=== PATIENT | female | born 1955 | race Caucasian/White ===

== ENCOUNTER 2018-08-24 06:35 | Emergency (ER) | payer BC ==
--- OUTSIDE RECORDS SUMMARY | 2018-08-24 06:48 | XMS REPORT | Continuity of Care Document ---
:1955 External Reference #:[id number] Author Name Marisa Alcazar Care Team Providers Name Role Phone Baltazar Bran MD Primary Care Physician Unavailable Payers Type Date Identification Numbers Payment Provider Subscriber Policy Number: [id number] BS Liana Hall PayID: [id number] [address] [address] [place] [address] Effective: 2010 Policy Number: [id number] BS Of ADAN Hall Expires: 2015 PayID: [id number] [address] [address] [place] [address] Advance Directives Description No Information Available Problems Date Description Provider Status Onset: 07/14/2015 Sciatica Christian Escalante M.D. 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 morning and 3 at at night Carbidopa-Levod 11/07/ Active Tablets 25-100mg 270ta 1 tab G20 [facility] 2017 bs rose Wood M.D. times a day Vasotec 00/00/ Active Tablets 20mg 1 by mouth Unknown 0000 every day Triamterene/Hyd 00/ Active Capsules 37.5-25mg 1 by mouth Unknown rochlorothiazid 0000 every day e Levothyroxine / Active Tablets 75mcg 1 by mouth Unknown Sodium 0000 every day Caltrate 600+D / Active Chewtabs 600-400mg 1 by mouth Unknown 0000 -Unit every day Multivitamins / Active Capsules 1 by mouth Unknown 0000 every day Ezetimibe / Active Tablets 10mg take one Unknown 0000 tablet daily, generic if available Zetia / Hx Tablets 10mg 1 by mouth Unknown 0000 - every day 2016 Ibuprofen / Hx Capsules 200mg as needed Unknown 0000 - 2017 Fish Oil / Hx Capsules 1200mg 1 by mouth Unknown 0000 - DR three 2017 daily Medications Administered in Office Medication Date Status Form Strength Qnty SIG Indications Ordering Provider Depomedrol Administered Injection Olivia 40MG 018 EH Chavez Immunizations Description No Information Available Vital Signs Date Vital Result Comment 08/07/2018 10:37am Height 59 inches 4'11" Weight 150.00 lb Respiratory Rate 16 /min Pain Level 10 BMI (Body Mass Index) 30.3 kg/m2 06/21/2018 10:57am Heart Rate 80 /min BP Systolic 128 mmHg BP Diastolic 86 mmHg Respiratory Rate 16 /min Pain Level 7 04/24/2018 9:07am Height 59.5 inches 4'11.50" Weight 158.00 lb Heart Rate 72 /min BP Systolic 138 mmHg BP Diastolic 90 mmHg Respiratory Rate 16 /min BMI (Body Mass Index) 31.4 kg/m2 10/25/2017 3:21pm Height 59.5 inches 4'11.50" Weight 172.38 lb Heart Rate 66 /min BP Systolic 124 mmHg BP Diastolic 76 mmHg BMI (Body Mass Index) 34.2 kg/m2 08/01/2017 10:06am Height 59.5 inches 4'11.50" Weight 170.00 lb Heart Rate 72 /min BP Systolic Sitting 120 mmHg BP Diastolic Sitting 84 mmHg BMI (Body Mass Index) 33.8 kg/m2 11/07/2016 2:06pm Height 59.5 inches 4'11.50" Weight 162.00 lb Heart Rate 71 /min BP Systolic Sitting 138 mmHg BP Diastolic Sitting 74 mmHg Respiratory Rate 16 /min BMI (Body Mass Index) 32.2 kg/m2 10/13/2015 12:56pm Height 59.5 inches 4'11.50" Weight 146.00 lb Heart Rate 72 /min BP Systolic Sitting 142 mmHg BP Diastolic Sitting 76 mmHg Respiratory Rate 16 /min BMI (Body Mass Index) 29.0 kg/m2 07/14/2015 9:43am Height 59.5 inches 4'11.50" Weight 151.00 lb Heart Rate 90 /min BP Systolic Sitting 140 mmHg BP Diastolic Sitting 100 mmHg Pain Level 3 back/r leg BMI (Body Mass Index) 30.0 kg/m2 Results Description No Information Available Procedures Date Code Description Status 04/24/2018 42696 Inject/Drain Joint/Bursa Major W/O US Completed 07/05/2012 88531 Stress Test Completed Encounters Type Date Location Provider Dx Diagnosis Office Visit 06/21/2018 Orthopedic Sloan Donald M17.11 Unilateral primary 11:00a Services Of [facility] Hillman MD osteoarthritis, right knee M25.461 Effusion, right knee M25.561 Pain in right knee S83.241D Oth tear of medial meniscus, current injury, r knee, subs Office Visit 04/24/2018 1:00p Bayron Donald M25.461 Effusion, right Services [facility] Rafy knee Jorge M17.11 Unilateral primary osteoarthritis, right knee M25.561 Pain in right knee Office 04/24/2018 [facility] G20 Parkinson's Visit 9:15a Services Of Walter Wood M.D. 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 side R25.1 Tremor, unspecified Office Visit 07/05/2012 8:00a [facility] Terri Orozco, 786.50 Pain Chest Of [facility] Cormier Unspec 401.9 Hypertension Unspec Plan of Treatment Future Appointment(s):09/10/2018 8:30 am - Sloan Hillman MD at [facility]/15/2018 8:00 am - Jas Wood M.D. at [facility]08/07/2018 - Sloan Hillman, MDM17.11 Unilateral primary osteoarthritis, right kneeFollow up:Follow up: for H&P within 30 days of planned bedlejvQ88.561 Pain in right knee
[2018-08-24] MEDS ORDERED: NS 0.9% 1000 ML* 1,000 ML IV ONE (07:18)
[2018-08-24] MEDS ORDERED: DiMENhydriNATE IV* 50 MG/ML VIAL IV PUSH ONE (07:18)
--- NOTE | 2018-08-24 07:29 | ED ---
Dizziness - HPI Summary HPI Summary: Pt is a 62 y/o female who presents to the ED c/o dizziness. She states yesterday morning she got off her inversion table for her back and became mildly dizzy, which is not unusual. Pt then had an appointment with her PCP for her knee replacement surgery next month, and her physical exam was normal. She then became nauseated and had one episode of emesis last night. Pt describes the sensation as her head spinning, and bending down or turning her head makes the dizziness worse. She currently c/o a mild headache. She denies any cough, fever, congestion, numbness, weakness, aphasia, or head injury. PMHx HTN. - History Of Current Complaint Chief Complaint: EDDizziness Stated Complaint: GENERAL Time Seen by Provider: 08/24/18 07:16 Hx Obtained From: Patient Onset/Duration: Still Present Timing: Days - Yesterday Character: Head Spinning, Dizzy Aggravating Factor(s): Position Change - bending down, Change In Head Position Alleviating Factor(s): Nothing Associated Signs And Symptoms: Positive: Nausea, Vomiting, Other: - headache. Negative: Fever, Slurred Speech - Allergies/Home Medications Allergies/Adverse Reactions: Allergies Allergy/AdvReac Type Severity Reaction Status Date / Time No Known Allergies Allergy Verified 06/11/18 11:38 PMH/Surg Hx/FS Hx/Imm Hx Endocrine/Hematology History: Reports: Hx Thyroid Disease Denies: Hx Diabetes Cardiovascular History: Reports: Hx Hypercholesterolemia, Hx Hypertension - CONTROLLED Denies: Hx Pacemaker/ICD Respiratory History: Denies: Hx Asthma GI History: Reports: Other GI Disorders - diarrhea/constipation History: Reports: Other Problems/Disorders - incontinence Denies: Hx Renal Disease Musculoskeletal History: Reports: Hx Arthritis, Hx Back Problems, Other Musculoskeletal History - chronic pain, tremors Sensory History: Reports: Hx Contacts or Glasses, Other Sensory Impairments - dentures Denies: Hx Hearing Aid Opthamlomology History: Reports: Hx Contacts or Glasses, Other Sensory Impairments - dentures Neurological History: Reports: Hx Headaches, Other Neuro Impairments/Disorders - parkinsonian tremors Psychiatric History: Denies: Hx Panic Disorder - Cancer History Hx Chemotherapy: No Hx Radiation Therapy: No - Surgical History Surgery Procedure, Year, and Place: tubal, hysterectomy 1998 Infectious Disease History: No Infectious Disease History: Denies: Traveled Outside the [place] in Last 30 Days - Family History Known Family History: Positive: Cardiac Disease - Social History Alcohol Use: None Hx Substance Use: No Substance Use Type: Reports: None Hx Tobacco Use: No Smoking Status (MU): Never Smoked Tobacco Review of Systems Negative: Fever Negative: Nasal Discharge Negative: Cough Positive: Vomiting, Nausea Neurological: Other - dizziness, NEGATIVE: aphasia Positive: Headache. Negative: Weakness, Numbness All Other Systems Reviewed And Are Negative: Yes Physical Exam - Summary Physical Exam Summary: Appearance: Well appearing, no pain distress Skin: warm, dry, reflects adequate perfusion Head/face: normal Eyes: EOMI, YUNIER, no nystagmus ENT: mucous membranes moist, small serous effusions in both ears, no sinus tenderness, [place]-Hallpike to the right produces symptoms Neck: supple, non-tender Respiratory: CTA, breath sounds present Cardiovascular: RRR, pulses symmetrical Abdomen: non-tender, soft Bowel Sounds: present Musculoskeletal: normal, strength/ROM intact Neuro: normal, sensory motor intact, A&Ox3 Triage Information Reviewed: Yes Vital Signs On Initial Exam: Initial Vitals Temp Pulse Resp BP Pulse Ox 98.3 F 80 20 163/88 99 08/24/18 06:37 08/24/18 06:37 08/24/18 06:37 08/24/18 06:37 08/24/18 06:37 Vital Signs Reviewed: Yes Diagnostics - Vital Signs Vital Signs Temp Pulse Resp BP Pulse Ox 08/24/18 06:37 98.3 F 80 20 163/88 99 - Laboratory Result Diagrams: 08/24/18 07:46 08/24/18 07:46 Lab Statement: Any lab studies that have been ordered have been reviewed, and results considered in the medical decision making process. - EKG 7:28 Cardiac Rate: NL - 66 bpm EKG Rhythm: Sinus Rhythm ST Segment: Non-Specific Summary of EKG Findings: Nl axis, nl intervals Re-Evaluation - Re-Evaluation First Eval Re-Evaluation Time: 08:10 Change: Improved Comment: Pt feels better after the medications. Dizzy Course/Dx - Course Course Of Treatment: Nurse's note reviewed. Patient with abrupt vertigo after coming off the inversion table this morning. Vertigo rises when bending over or turning head. Small serous effusions bilaterally. No URI symptoms. Treated here with IV fluids, IV Dramamine with relief. Able to walk without vertigo. Discharged in good condition. - Diagnoses Differential Diagnosis/HQI/PQRI: Benign Paroxysmal Positional Vertigo, Hypovolemia, Labyrinthitis, Metabolic Abnormality, Other - Vestibular neuronitis , posterior CVA Provider Diagnoses: Peripheral vertigo, Labyrinthitis, Elevated blood pressure reading Discharge - Sign-Out/Discharge Documenting (check all that apply): Patient Departure - Discharge - Discharge Plan Condition: Improved Disposition: HOME Prescriptions: Meclizine HCl [Motion Sickness Relief] 25 - 50 mg PO TID PRN #30 tablet PRN Reason: Dizziness Patient Education Materials: Labyrinthitis (ED), Vertigo (ED) Referrals: Baltazar Bran MD [Primary Care Provider] - Additional Instructions: Do Not drive. Call today for prompt follow-up with your doctor. Drink plenty of fluids. Return with headache, numbness/weakness, difficulty with speech or balance, worse or other concerns. Eply maneuvers as shown. - Billing Disposition and Condition Condition: IMPROVED Disposition: Home - Attestation Statements Document Initiated by Scribe: Yes Documenting Scribe: Vanita Diop Provider For Whom Scribe is Documenting (Include Credential): Femi Hector MD Scribe Attestation: Vanita Camp, scribed for Femi Hector MD on 08/24/18 at 1000. Scribe Documentation Reviewed: Yes Provider Attestation: The documentation as recorded by the Vanita deleon accurately reflects the service I personally performed and the decisions made by me, Femi Hector MD Status of Scribe Document: Viewed
[2018-08-24 07:52] LABS: ABS Basophils 0 10^3/ul (0-0.2); ABS Eosinophils 0 10^3/ul (0-0.6); ABS Lymphocytes 1.4 10^3/ul (1.0-4.8); ABS Monocytes 0.4 10^3/ul (0-0.8); ABS Neutrophils 4.9 10^3/ul (1.5-7.7); ABS Nucleated RBC 0 10^3/ul; Eosinophil % 0.3 %; Hematocrit 39 % (35-47); Hemoglobin 13.2 g/dl (12.0-16.0); Lymphocyte % 21.1 %; Mean Corpuscular HGB Conc 34 g/dl (31-36); Mean Corpuscular Hemoglobin 29 pg (27-31); Mean Corpuscular Volume 87 fL (80-97); Mean Platelet Volume 9.1 fL (7.4-10.4); Nucleated Red Blood Cells % 0.1; Platelet Count 257 10^3/ul (150-450); Red Blood Count 4.51 10^6/ul (4.00-5.40); Red Cell Distribution Width 14 % (10.5-15); White Blood Count 6.8 10^3/ul (3.5-10.8)
[2018-08-24 08:08] LABS: EGFR Non-African American 63.1 (>60)
[2018-08-24 08:36] VITALS: BP 172/80
== END 2018-08-24 08:33 | disposition home or self-care (01) ==
LOC: ED 06:35
DX: H81.399 Other peripheral vertigo, unspecified ear (principal); H83.09 Labyrinthitis, unspecified ear; R03.0 Elevated blood-pressure reading, without diagnosis of hypertension; R11.2 Nausea with vomiting, unspecified
CPT/HCPCS: 36415; 80048; 85025; 93005; 96374; 99282; J1240

== ENCOUNTER 2018-09-21 05:29 | Inpatient (IN) | payer BC ==
[~2018-09-21 05:29] MED LIST: Buffered Lidocaine 0.9% SYRIN* 5 ML/SYR SYRINGE INTRADERM ONE; Tranexamic Acid 1,000 MG in NS 0.9% 50 ML* (outpatient use) IV SCH
--- OUTSIDE RECORDS SUMMARY | 2018-09-21 05:32 | XMS REPORT | Continuity of Care Document ---
:1955 External Reference #:[id number] Author Name Erin Flaherty Care Team Providers Name Role Phone Baltazar Bran MD Primary Care Physician Unavailable Payers Type Date Identification Numbers Payment Provider Subscriber Policy Number: [id number] BS Liana Hall PayID: [id number] [address] [address] [place] [address] Effective: 2010 Policy Number: [id number] BS Of DAAN Hall Expires: 2015 PayID: [id number] [address] [address] [place] [address] Advance Directives Description No Information Available Problems [...] Use Denies Drug Use Smoking Status Reviewed: 09/10/18 Patient has never smoked Allergies, Adverse Reactions, Alerts Description No Known Drug Allergies Medications Medication Date Status Form Strength Qnty SIG Indications Ordering Provider Gabapentin 08/01/ Active Capsules 300mg 540ca 3 in in M54.5 2016 ps yudith Wood M.D. morning and 3 at at night Carbidopa-Levod 11/07/ Active Tablets 25-100mg 270ta 1 tab G20 [facility] 2016 bs rose Wood M.D. times a day Vasotec 00/00/ Active Tablets 20mg 1 by mouth Unknown 0000 every day Triamterene/Hyd 0000/ Active Capsules 37.5-25mg 1 by mouth Unknown [...] 1 by mouth Unknown 0000 - DR rose 2017 daily Medications Administered in Office Medication Date Status Form Strength Qnty SIG Indications Ordering Provider Depomedrol Administered Injection Olivia 40MG 018 EH Chavez Immunizations Description No Information Available Vital Signs Date Vital Result Comment 09/10/2018 10:38am Height 59 inches 4'11" Weight 150.00 lb Heart Rate 64 /min BP Systolic 120 mmHg BP Diastolic 84 mmHg BMI (Body Mass Index) 30.3 kg/m2 08/07/2018 10:37am Height 59 inches 4'11" Weight [...] Available Procedures Date Code Description Status 04/24/2018 68582 Inject/Drain Joint/Bursa Major W/O US Completed 07/05/2012 65276 Stress Test Completed Encounters Type Date Location Provider Dx Diagnosis Office Visit 08/07/2018 [facility] Donald M17.11 Unilateral primary 10:30a Services Of Jorge Hillman MD osteoarthritis, right knee M25.561 Pain in right knee Office Visit 06/21/2018 [facility] Donald M17.11 Unilateral primary 11:00a Services Of MD Rafy osteoarthritis, C.M.A. right knee M25.461 Effusion, right knee M25.561 Pain in right knee S83.241D Oth tear of medial meniscus, current injury, r knee, subs Office Visit 04/24/2018 1:00p [facility] Sloan Donald M25.461 Effusion, right Services [facility] MD Rafy knee C.M.A. M17.11 Unilateral primary osteoarthritis, right knee M25.561 Pain in right knee Office [facility] 9:15a Services Of Walter Wood M.D. 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 side R25.1 Tremor, unspecified Office Visit 07/05/2012 8:00a [facility] Terri Orozco, 786.50 [facility] [place] Unspec 401.9 Hypertension Unspec Plan of Treatment Future Appointment(s):10/02/2018 1:30 pm - Sloan Hillman MD at [facility]09/21/2018 7:30 am - Hamilton Devi PA-C at [facility]09/21/2018 7:30 am - Sloan Hillman MD at [facility]11/15/2018 8:00 am - Jas Wood M.D. at [facility]09/10/2018 - Sloan Hillman, MDM17.11 Unilateral primary osteoarthritis, right kneeFollow up:Follow up: to ORM25.561 Pain in right kneeM25.461 Effusion, right kneeS83.241D Other tear of medial meniscus, current injury, right knee, s
--- OUTSIDE RECORDS SUMMARY | 2018-09-21 05:33 | XMS REPORT ---
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 Active Onset: 10/04/2005 Hyperlipidemia Baltazar Bran M.D. Active Onset: 10/04/2005 Goiter Baltazar Bran M.D. Active Onset: 12/18/2012 Gastroesophageal reflux disease Baltazar Bran M.D. Active Onset: 08/26/2014 Hypothyroidism Baltazar Bran M.D. Active Onset: 08/11/2015 Low back pain Baltazar Bran M.D. Active Onset: 02/14/2017 Parkinson's disease Baltazar Bran M.D. Active Onset: 02/20/2018 Knee pain Baltazar Bran M.D. Active Onset: 08/23/2018 Other hyperlipidemia Baltazar Bran M.D. Active Onset: 08/23/2018 Encounter for other preprocedural Baltazar Bran M.D. Active examination Onset: 10/18/2011 Benign essential hypertension Baltazar Bran M.D. Inactive Inactive: 08/17/2017 Onset: 09/25/2012 Backache Baltazar Bran M.D. Inactive Inactive: 08/17/2017 Onset: 08/11/2015 Simple goiter Baltazar Bran M.D. Inactive Inactive: 08/17/2017 Onset: 08/11/2015 Essential tremor Baltazar Bran M.D. Inactive Inactive: 08/17/2017 Onset: 12/22/2015 Mixed hyperlipidemia Baltazar Bran M.D. Inactive Inactive: 08/17/2017 Onset: 12/22/2015 Disorder of thyroid gland Baltazar Bran M.D. Inactive Inactive: 08/17/2017 Onset: 12/22/2015 Screening for malignant neoplasm of Baltazar Bran M.D. Inactive colon Inactive: 08/17/2017 Onset: 06/28/2016 smoke chaser waking Baltazar Bran M.D. Inactive Inactive: 08/17/2017 Onset: 02/14/2017 Hypercalcemia Baltazar Bran M.D. Inactive Inactive: 02/20/2018 Family History Date Family Member(s) Problem(s) Comments Onset: (age 45 Years) Father Coronary Artery Disease (CAD) smoker : (age 56 Years) Father due to [place] : (age 63 Years) Mother due to CT First Brother no coronary artery disease , diabetic First Sister no coronary artery disease Social History Type Date Description Comments Marital Status Patient is Cigarette Use Never Smoked Cigarettes Smoking Patient has never smoked Exercise Type/Frequency Current Exercises regularly Allergies, Adverse Reactions, Alerts Date Description Reaction Status Severity Comments 06/12/2011 NKDA active Medications Medication Date Status Form Strength Qnty SIG Indications Ordering Provider Enalapril 05/03/ Active Tablets 20mg 90tab Take One I10 Baltazar F. Maleate 2017 s Tablet By Shallisabell, Mouth Every M.D. Day Levothyroxine 04/01/ Active Tablets 75mcg 90tab 1 by mouth Baltazar F. Sodium 2018 s every day Genia Bran Gabapentin 11/15/ Active Capsules 300mg 180ca 3 caps Am Baltazar F. 2016 ps and 3 caps Shallisabell, PM M.D. Maxzide-25 03/30/ Active Tablets 37.5-25mg 90tab Take One Baltazar F. 2010 s Tablet By Shallish, Mouth Every M.DdE Day Zetia 05/08/ Active Tablets 10mg 90tab Take One Baltazar F. 2004 s Tablet By Shant, Mouth Every M.DEd Day Caltrate 600+D / Active Chewtabs 600-800mg one by mouth Baltazar F. Soft 0000 -Unit daily Genia Bran Multivitamin / Active Chewtabs 1 by mouth Baltazar F. Gummies Adults 0000 once a day Genia Bran Carbidopa-Levod / Active Tablets 25-100mg 1 tab tid Baltazar F. opa 0000 Genia Bran Cetirizine HCL / Active Baltazar F. 0000 Genia Bran Montelukast 02/20/ Hx Tablets 10mg 30tab 1 by mouth Baltazar F. Sodium 2017 - s daily prn Shant 08/23/ M.D. 2017 Zolpidem 06/28/ Hx Tablets ER 6.25mg 30tab take Baltazar F. Tartrate ER 2015 - 1tablets by Shant, 02/14/ mouth at M.D. 2016 bedtime as needed. Gabapentin 02/03/ Hx Capsules 100mg 90cap 1 by mouth Leon De Jesus 2015 - up to three Darlow, 06/28/ times per M.D. 2015 day Meloxicam 12/21/ Hx Tablets 7.5mg 60tab take one Baltazar F. 2015 - s tablet by Shant, 08/17/ mouth twice M.D. 2016 a day with food as needed Mometasone 12/21/ Hx Cream 0.1% 45gm apply three Baltazar F. Furoate 2016 - times a day Shant, 08/17/ as needed M.D. 2017 Oxycodone-Aceta 08/25/ Hx Tablets 7.5-325mg 60tab Take 1 Baltazar F. minophen 2014 - s tablet by Shant, 12/21/ mouth every M.D. 2016 4 hours as needed for pain Oxycodone-Aceta 07/02/ Hx Tablets 5-325mg 45tab 1 by mouth Baltazar F. minophen 2014 - s every 4 to 6 Shant 08/25/ hours as M.D. 2014 needed Tramadol HCL 06/23/ Hx Tablets 50mg 40tab 1 by mouth Baltazar F. 2014 - s every 6 Shallish, 12// hours as M.D. 2015 needed Prednisone 06/16/ Hx Tablets 5mg 9tabs 2 tabs x 3 Christina 2014 - days , then Sukhwinder, tabs x 3 Afnp-C 2014 days, Prednisone 06/02/ Hx Tablets 5mg 9tabs 2 tabs x 3 724.3 Christina 2014 - days , then Sukhwinder, tabs x 3 Afnp-C 2014 days, Levothyroxine 04/15/ Hx Tablets 50mcg 90tab Take One Baltazar F. Sodium 2014 - s Tablet By Shant, 04/01/ Mouth Every M.D. 2018 Day Levothyroxine 03/28/ Hx Tablets 25mcg 90tab Take One Baltazar F. Sodium 2013 - s Tablet By Shant, 04/15/ Mouth Every M.D. 2015 Day Losartan 02/04/ Hx Tablets 50mg 30tab 1 po qd Baltazar F. Potassium 2013 - s Shant, M.D. 2013 Medrol Dosepak 02/04/ Hx Tablets 4mg 1tabs as directed Baltazar F. 2013 - Shant, M.D. 2013 Vasotec 02/04/ Hx Tablets 20mg 90tab take one I10 Baltazar F. 2013 - s tablet by Shant, 05/03/ mouth every M.D. 2018 day Pantoprazole 12/18/ Hx Tablets DR 40mg 90tab 1 po qd Baltazar F. Sodium 2012 - s Shant, M.D. 2014 Nexium 10/17/ Hx Capsules 40mg 30cap 1 po qd Baltazar FEd 2012 - DR eric Bran, M.D. 2013 Omeprazole 07/04/ Hx Capsules 20mg 60cap 1 po qd Baltazar Portillo 2011 - DR eric Bran, M.D. 2013 Keflex 10/18/ Hx Capsules 500mg 20cap 1 po bid Owen Ledbetter 2010 - s [place]ura, 03/30/ M.D. 2010 Fish Oil 02/22/ Hx Oil 1 po tid Baltazar FEd 2009 - Shant, M.D. 2017 [facility] 12/03/ Hx Tablets 10mg 30tab 1 po qd Baltazar F. 2007 - s [facility], 02/22/ M.D. 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 2004 - s [facility], 05/08/ M.D. 2005 Lab 05/04/ Hx CBC, CMP, Jacob 2003 - Fasting Fuentes, 07/20/ Lipid [employer] 2004 Profile DX: HTN, High Cholesterol Zetia 07/22/ Hx 10mg 100un 1 qd Baltazar F. 2002 - [facility], 04/11/ M.D. 2004 Zocor 04/01/ Hx 10mg 60uni 1 PO qd Baltazar F. 2002 - [facility], M.D. 2002 Synthroid 03/19/ Hx 50mcg 100un 1 PO qd Baltazar F. 2001 - [facility], M.D. 2002 Penicillin 09/29/ Hx 250mg 20uni One tid Radu Estrada 1999 - Kayleigh, M.D. 1999 Vasotec 01/13/ Hx 20mg 90uni 1 po qd 401.9 Baltazar FEd 1997 - [facility], M.D. 2012 Lo Ovral 01/13/ Hx 0unit Take One Radu Estrada 1997 - Daily as Kayleigh, M.D. 1999 Day Cycle Dyazide 05/ Hx 37.5/25 30uni 1 po qd 401.9 Baltazar F. 1997 - [facility], M.D. 2010 Vasotec 05/ Hx Tablets 20mg 90tab 1 po qd 401.9 Baltazar FEd 1997 - [facility], M.D. 2014 Multi Vitamin /00/ Hx Tablets One By Mouth Unknown Daily 0000 - Daily 2014 Glucosamine // Hx Capsules 1 by mouth Unknown Sulfate 0000 - twice a day 2014 Medications Administered in Office Medication Date Status Form Strength Qnty SIG Indications Ordering Provider TB Intradermal Administered Injection Baltazar F. Test 014 Genia Bran TB Intradermal Administered Injection Baltazar F. Test 010 Genia Bran TB Intradermal Administered Injection Baltazar F. Test 008 Genia Bran TB Intradermal Administered Injection Baltazar F. Test 006 Genia Bran TB Intradermal Administered Injection Jacob Test 004 ANGIE Dill TB Intradermal Administered Injection Nurse, Test 002 Nurse TB Intradermal Administered Injection Adrianne Test 000 [place], Afnp-C Immunizations CPT Code Status Date Vaccine Reaction Lot # [id number] Given 08/23/2018 Influenza vac quadrivalent [id number] preservative free 3yrs and up [address] Given 08/17/2017 Influenza vac quadrivalent [id number] preservative free 3yrs and up [address] Given 06/28/2016 Influenza Vac, Quadrivalent, [id number] [address] Given 08/11/2015 Influenza Vac, Quadrivalent, [id number] [address] Given 08/26/2014 Influenza Vac, Quadrivalent, [id number] [address] Given 06/11/2013 DO Not Use Split Influenza Virus [id number] Vaccine 13404 Given 06/12/2012 Tdap Tetanus, W Pertussis no reaction noted [id number] 78625 Given 06/12/2012 DO Not Use Split Influenza Virus no reaction noted [id number] Vaccine 89595 Given 07/22/2003 DO Not Use Split Influenza Virus Vaccine 29555 Given 07/22/2003 DO Not Use Split Influenza Virus Vaccine 86249 Given 07/16/2002 DO Not Use Split Influenza Virus Vaccine Vital Signs Date Vital Result Comment 08/23/2018 BP Systolic 162 mmHg BP Diastolic 92 mmHg Heart Rate 68 /min Body Temperature 97.9 F Height 59.25 inches 4'11.25" Weight 153.00 lb BMI (Body Mass Index) 30.6 kg/m2 02/20/2018 BP Systolic 128 mmHg BP Diastolic 78 mmHg Heart Rate 76 /min Body Temperature 98.8 F Respiratory Rate 16 /min Height 59.25 inches 4'11.25" Weight 170.50 lb BMI (Body Mass Index) 34.1 kg/m2 08/17/2017 BP Systolic 122 mmHg BP Diastolic 84 mmHg Heart Rate 72 /min Body Temperature 97.7 F Height 59.25 inches 4'11.25" Weight 173.00 lb BMI (Body Mass Index) 34.6 kg/m2 02/14/2017 BP Systolic 130 mmHg BP Diastolic 70 mmHg Heart Rate 72 /min Body Temperature 98.8 F Respiratory Rate 16 /min Height 59.25 inches 4'11.25" Weight 168.00 lb BMI (Body Mass Index) 33.6 kg/m2 11/15/2016 BP Systolic 124 mmHg BP Diastolic 68 mmHg Heart Rate 68 /min Body Temperature 98.1 F Respiratory Rate 18 /min Height 59.25 inches 4'11.25" Weight 164.00 lb BMI (Body Mass Index) 32.8 kg/m2 06/28/2016 BP Systolic 130 mmHg BP Diastolic 80 mmHg Heart Rate 64 /min Body Temperature 98.9 F Respiratory Rate 18 /min Height 59.25 inches 4'11.25" Weight 160.38 lb BMI (Body Mass Index) 32.1 kg/m2 12/22/2015 BP Systolic 155 mmHg BP Diastolic 80 mmHg Heart Rate 74 /min Body Temperature 98.8 F Respiratory Rate 16 /min Height 59.25 inches 4'11.25" Weight 158.00 lb BMI (Body Mass Index) 31.6 kg/m2 08/11/2015 BP Systolic 143 mmHg BP Diastolic 96 mmHg Heart Rate 72 /min Body Temperature 98.4 F Respiratory Rate 16 /min Height 59.25 inches 4'11.25" Weight 155.50 lb BMI (Body Mass Index) 31.1 kg/m2 06/02/2015 BP Systolic 144 mmHg BP Diastolic 78 mmHg Heart Rate 71 /min Body Temperature 98.8 F Respiratory Rate 16 /min Weight 159.12 lb 03/03/2015 Heart Rate 72 /min Body Temperature 98.9 F Respiratory Rate 15 /min Height 59.25 inches 4'11.25" Weight 166.50 lb BMI (Body Mass Index) 33.3 kg/m2 01/17/2015 BP Systolic 134 mmHg BP Diastolic 80 mmHg Heart Rate 78 /min Body Temperature 97.4 F Respiratory Rate 16 /min Height 59.25 inches 4'11.25" Weight 167.00 lb BMI (Body Mass Index) 33.4 kg/m2 08/26/2014 BP Systolic 130 mmHg BP Diastolic 80 mmHg Heart Rate 76 /min Respiratory Rate 16 /min Height 59.25 inches 4'11.25" Weight 173.00 lb BMI (Body Mass Index) 34.6 kg/m2 02/06/2014 BP Systolic 142 mmHg BP Diastolic 86 mmHg Heart Rate 76 /min Body Temperature 98.0 F Respiratory Rate 16 /min Height 59.25 inches 4'11.25" Weight 177.00 lb BMI (Body Mass Index) 35.4 kg/m2 02/04/2014 BP Systolic 142 mmHg BP Diastolic 86 mmHg Heart Rate 76 /min Body Temperature 98.0 F Respiratory Rate 16 /min Height 59.25 inches 4'11.25" Weight 177.00 lb BMI (Body Mass Index) 35.4 kg/m2 06/11/2013 BP Systolic 130 mmHg BP Diastolic 80 mmHg Heart Rate 76 /min Body Temperature 97.7 F Respiratory Rate 16 /min Height 59.25 inches 4'11.25" Weight 175.00 lb BMI (Body Mass Index) 35.0 kg/m2 12/18/2012 BP Systolic 124 mmHg BP Diastolic 60 mmHg Heart Rate 72 /min Respiratory Rate 18 /min Height 59.25 inches 4'11.25" Weight 176.00 lb BMI (Body Mass Index) 35.2 kg/m2 09/25/2012 BP Systolic 130 mmHg BP Diastolic 80 mmHg Heart Rate 72 /min Body Temperature 98.1 F Height 59.25 inches 4'11.25" Weight 179.38 lb BMI (Body Mass Index) 35.9 kg/m2 07/04/2012 BP Systolic 146 mmHg BP Diastolic 84 mmHg Heart Rate 60 /min Body Temperature 96.8 F Height 59.25 inches 4'11.25" Weight 171.00 lb BMI (Body Mass Index) 34.2 kg/m2 06/12/2012 BP Systolic 120 mmHg BP Diastolic 80 mmHg Heart Rate 64 /min Body Temperature 98.0 F Respiratory Rate 20 /min Height 59.25 inches 4'11.25" Weight 174.00 lb BMI (Body Mass Index) 34.8 kg/m2 10/18/2011 BP Systolic 130 mmHg BP Diastolic 80 mmHg Heart Rate 68 /min Respiratory Rate 14 /min Height 59.25 inches 4'11.25" Weight 176.00 lb BMI (Body Mass Index) 35.2 kg/m2 05/10/2011 BP Systolic 130 mmHg BP Diastolic 80 mmHg Heart Rate 72 /min Respiratory Rate 14 /min Height 59.25 inches 4'11.25" Weight 176.00 lb BMI (Body Mass Index) 35.2 kg/m2 10/18/2010 BP Systolic 130 mmHg BP Diastolic 90 mmHg Heart Rate 72 /min Body Temperature 98.8 F Respiratory Rate 16 /min Height 59.25 inches 4'11.25" Weight 174.00 lb BMI (Body Mass Index) 34.8 kg/m2 02/22/2010 BP Systolic 142 mmHg BP Diastolic 92 mmHg Heart Rate 72 /min Body Temperature 98.6 F Respiratory Rate 16 /min Height 59.25 inches 4'11.25" Weight 174.00 lb BMI (Body Mass Index) 34.8 kg/m2 06/16/2009 BP Systolic 140 mmHg BP Diastolic 90 mmHg Heart Rate 72 /min Body Temperature 97.9 F Height 60 inches 5'0" Weight 172.00 lb BMI (Body Mass Index) 33.6 kg/m2 03/19/2009 BP Systolic 142 mmHg BP Diastolic 88 mmHg Heart Rate 80 /min Weight 180.00 lb 01/12/2009 BP Systolic 130 mmHg BP Diastolic 80 mmHg Heart Rate 68 /min Body Temperature 97.8 F Weight 185.00 lb 03/26/2008 BP Systolic 120 mmHg BP Diastolic 80 mmHg Heart Rate 80 /min Height 60 inches 5'0" Weight 183.00 lb BMI (Body Mass Index) 35.7 kg/m2 12/04/2007 BP Systolic 158 mmHg BP Diastolic 86 mmHg Heart Rate 84 /min Body Temperature 98.2 F Height 60 inches 5'0" Weight 186.00 lb BMI (Body Mass Index) 36.3 kg/m2 04/19/2007 BP Systolic 110 mmHg BP Diastolic 70 mmHg Heart Rate 68 /min Body Temperature 97.1 F Height 60 inches 5'0" Weight 183.00 lb BMI (Body Mass Index) 35.7 kg/m2 02/19/2007 BP Systolic 120 mmHg BP Diastolic 80 mmHg Heart Rate 80 /min Body Temperature 99.0 F Height 60 inches 5'0" Weight 184.00 lb BMI (Body Mass Index) 35.9 kg/m2 10/18/2006 BP Systolic 122 mmHg BP Diastolic 80 mmHg Heart Rate 76 /min Respiratory Rate 15 /min Height 60 inches 5'0" Weight 185.00 lb BMI (Body Mass Index) 36.1 kg/m2 06/03/2006 BP Systolic 110 mmHg BP Diastolic 80 mmHg Body Temperature 98.5 F Height 60 inches 5'0" Weight 175.00 lb BMI (Body Mass Index) 34.2 kg/m2 02/21/2006 BP Systolic 120 mmHg BP Diastolic 76 mmHg Heart Rate 68 /min Height 60 inches 5'0" Weight 175.00 lb BMI (Body Mass Index) 34.2 kg/m2 10/04/2005 BP Systolic 130 mmHg BP Diastolic 80 mmHg Heart Rate 72 /min Height 60 inches 5'0" Weight 172.00 lb BMI (Body Mass Index) 33.6 kg/m2 09/20/2005 BP Systolic 130 mmHg BP Diastolic 90 mmHg Height 60 inches 5'0" 04/02/2005 BP Systolic 124 mmHg BP Diastolic 84 mmHg Heart Rate 76 /min Height 60 inches 5'0" Weight 181.00 lb BMI (Body Mass Index) 35.3 kg/m2 11/18/2004 BP Systolic 128 mmHg LG Cuff BP Diastolic 80 mmHg LG Cuff Heart Rate 72 /min Height 60 inches 5'0" Weight 189.00 lb BMI (Body Mass Index) 36.9 kg/m2 07/20/2004 BP Systolic 124 mmHg BP Diastolic 78 mmHg Heart Rate 76 /min Height 60 inches 5'0" Weight 179.00 lb BMI (Body Mass Index) 35.0 kg/m2 05/04/2004 BP Systolic 118 mmHg BP Diastolic 68 mmHg Heart Rate 82 /min Height 60 inches 5'0" Weight 168.00 lb BMI (Body Mass Index) 32.8 kg/m2 11/05/2003 BP Systolic 140 mmHg BP Diastolic 92 mmHg Heart Rate 72 /min Height 60 inches 5'0" Weight 168.00 lb BMI (Body Mass Index) 32.8 kg/m2 07/22/2003 BP Systolic 132 mmHg BP Diastolic 88 mmHg Heart Rate 72 /min Height 60 inches 5'0" Weight 163.00 lb BMI (Body Mass Index) 31.8 kg/m2 04/01/2003 BP Systolic 134 mmHg BP Diastolic 84 mmHg Heart Rate 72 /min Body Temperature 97.3 F Height 60 inches 5'0" Weight 162.00 lb BMI (Body Mass Index) 31.6 kg/m2 07/16/2002 BP Systolic 110 mmHg BP Diastolic 78 mmHg Heart Rate 76 /min Body Temperature 97.3 F Height 60 inches 5'0" Weight 156.00 lb BMI (Body Mass Index) 30.5 kg/m2 04/09/2002 BP Systolic 124 mmHg BP Diastolic 82 mmHg Heart Rate 72 /min Height 60 inches 5'0" Weight 162.00 lb BMI (Body Mass Index) 31.6 kg/m2 02/26/2002 BP Systolic 134 mmHg BP Diastolic 76 mmHg Heart Rate 72 /min Height 60 inches 5'0" Weight 171.00 lb BMI (Body Mass Index) 33.4 kg/m2 10/22/2001 BP Systolic 148 mmHg BP Diastolic 86 mmHg Height 60 inches 5'0" Weight 186.00 lb BMI (Body Mass Index) 36.3 kg/m2 03/06/2001 BP Systolic 150 mmHg BP Diastolic 92 mmHg Heart Rate 80 /min Height 60 inches 5'0" Weight 183.00 lb BMI (Body Mass Index) 35.7 kg/m2 04/19/2000 BP Systolic 150 mmHg BP Diastolic 90 mmHg Heart Rate 72 /min Height 60 inches 5'0" Weight 185.00 lb BMI (Body Mass Index) 36.1 kg/m2 02/22/2000 BP Systolic 132 mmHg BP Diastolic 86 mmHg Heart Rate 84 /min Height 60 inches 5'0" Weight 176.50 lb BMI (Body Mass Index) 34.5 kg/m2 09/29/1999 Body Temperature 97.7 F Height 60 inches 5'0" Weight 173.00 lb BMI (Body Mass Index) 33.8 kg/m2 02/02/1999 BP Systolic 160 mmHg BP Diastolic 94 mmHg Height 60 inches 5'0" Weight 175.00 lb 05/12/1998 BP Systolic 130 mmHg BP Diastolic 92 mmHg Body Temperature 97.0 F Height 60 inches 5'0" Weight 158.00 lb 02/03/1998 BP Systolic 144 mmHg LA SM Cuff BP Diastolic 94 mmHg LA SM Cuff Weight 159.00 lb 8 LB Loss 01/13/1998 BP Systolic 162 mmHg LA SM Cuff BP Diastolic 96 mmHg LA SM Cuff Height 60 inches 5'0" Weight 167.00 lb Results Test Date Test Result H/L Range Note CBC Auto Diff 08/24/2018 White Blood Count 6.8 10^3/uL 3.5-10.8 Red Blood Count 4.51 10^6/uL 4.00-5.40 Hemoglobin 13.2 g/dL 12.0-16.0 Hematocrit 39 % 35-47 Mean Corpuscular Volume 87 fL 80-97 Mean Corpuscular Hemoglobin 29 pg 27-31 Mean Corpuscular HGB Conc 34 g/dL 31-36 Red Cell Distribution Width 14 % 10.5-15 Platelet Count 257 10^3/uL 150-450 Mean Platelet Volume 9.1 fL 7.4-10.4 Abs Neutrophils 4.9 10^3/uL 1.5-7.7 Abs Lymphocytes 1.4 10^3/uL 1.0-4.8 Abs Monocytes 0.4 10^3/uL 0-0.8 Abs Eosinophils 0 10^3/uL 0-0.6 Abs Basophils 0 10^3/uL 0-0.2 Abs Nucleated RBC 0 10^3/uL Granulocyte % 72.0 % Lymphocyte % 21.1 % Monocyte % 6.2 % Eosinophil % 0.3 % Basophil % 0.4 % Nucleated Red Blood Cells % 0.1 Basic Metabolic Panel 08/24/2018 Sodium 136 mmol/L 135-145 Potassium 4.1 mmol/L 3.5-5.0 Chloride 102 mmol/L 101-111 Co2 Carbon Dioxide 25 mmol/L 22-32 Anion Gap 9 mmol/L 2-11 Glucose 119 mg/dL High 70-100 Blood Urea Nitrogen 21 mg/dL 6-24 Creatinine 0.91 mg/dL 0.51-0.95 BUN/Creatinine Ratio 23.1 High 8-20 Calcium 9.9 mg/dL 8.6-10.3 Egfr Non- 63.1 >60 Egfr 76.3 >60 1 CBC Electronic (a New) 02/20/2018 WBC 7.53 4.0-10.0 RBC 4.30 3.93-6.0 Hemoglobin (Fma/CMC/CTX) 12.4 g/dL 12.0-17.0 Hematocrit (Fma/CMC/CTX) 36.9 % 35.0-50.0 Mean Corpuscular Vol 85.8 fL 80-95 Mean Corpuscular Hemoglobin 28.8 pg 25.6-32.2 Mean Corpuscular Hemo Concen 33.6 g/dL 32.2-36.0 Platelets 291 10^3/ul 163-400 RDW-CV 13.3 11.6-14.4 Mean Platelet Volume 10.6 fL 9.4-12.4 Absolute Neutrophils BLD 3.68 1.56-6.13 Absolute Lymphocytes 2.87 1.18-3.74 Absolute Monocytes BLD Auto 0.76 0.24-0.82 Absolute Eos Blood 0.17 0.04-0.54 Absolute Basophils 0.04 0.01-0.08 Neutrophil % 48.9 34.0-70.0 Lymph% 38.1 % 20.0-52.0 Monocytes % 10.1 % 5.0-12.0 Eos % 2.3 % 0.7-7.0 Basophil% 0.5 % 0.1-1.2 Laboratory test finding 02/20/2018 TSH 7.04 mIU/L High 0.50-6.00 2 CK 76 U/L 26-140 Comprehensive Metabolic Prof 02/20/2018 Sodium 143 mEq/L 134-149 Potassium 3.9 mEq/L 3.6-5.5 Chloride 107 mEq/L 94-112 Carbon Dioxide 27 mEq/L 21-32 Glucose 100 mg/dL 70-105 BUN 26 mg/dL 6-26 Creatinine 0.9 mg/dL 0.6-1.4 BUN/Creat Ratio 28.9 CALC 8.0-36.0 Calcium 9.4 mg/dL 8.6-10.2 Total Protein 6.9 g/dL 6.4-8.3 Albumin 4.4 g/dL 3.8-5.5 Globulin 2.5 g/dL 2.0-4.8 A/G Ratio 1.8 CALC 0.6-2.3 Alk. Phosphatase 49 U/L 30-110 Alt (SGPT) 7 U/L 7-35 Ast (Sgot) 16 U/L 5-34 Total Bilirubin 0.2 mg/dL 0.2-1.3 GFR Non- >60 ml/min/1.73m^ >=60 GFR >60 ml/min/1.73m^ >=60 Lipid Profile 02/20/2018 Cholesterol 230 mg/dL High 120-200 Triglycerides 205 mg/dL High 30-200 HDL Cholesterol 50 mg/dL 30-85 LDL (Calculated) 139 CALC High 0-129 VLDL Cholesterol 41 mg/dL 0-50 HDL Risk Factor 4.6 CALC High 0.0-4.4 Lipid Profile 08/17/2017 Cholesterol 226 mg/dL High 120-200 Triglycerides 265 mg/dL High 30-200 HDL Cholesterol 53 mg/dL 30-85 LDL (Calculated) 120 CALC 0-129 VLDL Cholesterol 53 mg/dL High 0-50 HDL Risk Factor 4.3 CALC 0.0-4.4 Comprehensive Metabolic Prof 08/17/2017 Sodium 136 mEq/L 134-149 Potassium 3.9 mEq/L 3.6-5.5 Chloride 105 mEq/L 94-112 Carbon Dioxide 27 mEq/L 21-32 Glucose 101 mg/dL 70-105 BUN 22 mg/dL 6-26 Creatinine 0.9 mg/dL 0.6-1.4 BUN/Creat Ratio 24.4 CALC 8.0-36.0 Calcium 9.6 mg/dL 8.6-10.2 Total Protein 7.2 g/dL 6.4-8.3 Albumin 4.4 g/dL 3.8-5.5 Globulin 2.8 g/dL 2.0-4.8 A/G Ratio 1.6 CALC 0.6-2.3 Alk. Phosphatase 51 U/L 30-110 Alt (SGPT) 13 U/L 7-35 Ast (Sgot) 19 U/L 5-34 Total Bilirubin 0.3 mg/dL 0.2-1.3 GFR Non- >60 ml/min/1.73m^ >=60 GFR >60 ml/min/1.73m^ >=60 Laboratory test finding 08/17/2017 TSH 2.30 mIU/L 0.50-6.00 CK 71 U/L 26-140 Complete Blood Count 08/17/2017 WBC 7.5 x10^3/UL 3.6-9.6 RBC 4.65 x10^6/UL 3.90-5.70 HGB 13.5 g/dL 12.1-17.2 HCT 40 % 36-50 MCV 86.0 fL 82.2-97.4 MCH 29.0 pg 27.6-33.3 MCHC 33.8 g/dL 33.0-35.5 RDW 14.2 % High 11.6-13.7 PLT 328 x10^3/UL 150-400 MPV 9.2 fL 7.4-10.4 Gran # 4.1 x10^3/UL 1.5-7.2 Lymph# 3.0 x10^3/UL 0.7-4.9 [place]# 0.4 x10^3/UL 0.1-0.9 Gran % 53.3 % 42.2-75.2 Lymph % 41.0 % 20.5-51.1 [place]% 5.7 % 1.7-9.3 Laboratory test finding 08/17/2017 LDL, Direct 138 mg/dL High 0-130 Pthi 08/17/2017 Calcium (PTH Intact) 9.9 mg/dL 8.6-10.3 PTH Intact 4.5 pmol/L 1.3-9.3 Laboratory test finding 01/21/2017 TSH 1.18 mIU/L 0.50-6.00 Free T4 1.16 ng/dL 0.75-1.54 Comprehensive Metabolic Prof 01/21/2017 Sodium 136 mEq/L 134-149 Potassium 4.9 mEq/L 3.6-5.5 Chloride 97 mEq/L 94-112 Carbon Dioxide 24 mEq/L 21-32 Glucose 93 mg/dL 70-105 BUN 24 mg/dL 6-26 Creatinine 0.9 mg/dL 0.6-1.4 BUN/Creat Ratio 26.7 CALC 8.0-36.0 Calcium 10.5 mg/dL High 8.6-10.2 3 Total Protein 6.9 g/dL 6.4-8.3 Albumin 4.2 g/dL 3.8-5.5 Globulin 2.7 g/dL 2.0-4.8 A/G Ratio 1.6 CALC 0.6-2.3 Alk. Phosphatase 49 U/L 30-110 Alt (SGPT) 9 U/L 7-35 Ast (Sgot) 20 U/L 5-34 Total Bilirubin 0.4 mg/dL 0.2-1.3 GFR Non- >60 ml/min/1.73m^ >=60 GFR >60 ml/min/1.73m^ >=60 Lipid Profile 01/21/2017 Cholesterol 227 mg/dL High 120-200 Triglycerides 153 mg/dL 30-200 HDL Cholesterol 57 mg/dL 30-85 LDL (Calculated) 139 CALC High 0-129 VLDL Cholesterol 31 mg/dL 0-50 HDL Risk Factor 4.0 CALC 0.0-4.4 CBC Electronic (Fma) 01/21/2017 WBC 6.2 3.6-9.6 RBC 4.62 3.90-5.70 Hemoglobin (Fma/CMC/CTX) 13.4 g/dL 12.1 - 17.2 Hematocrit (Fma/CMC/CTX) 40.0 % 36.1 - 50.3 Platelets 285 10^3/ul 150-400 Lymph% 48.4 % High 17.0-48.0 Mixed% 5.6 Neutrophils % 46.6 Mean Corpuscular Vol 87 82.2-97.4 Mean Corpuscular Hemoglobin 29.0 27.6-33.3 Mean Corpuscular Hemo Concen 33.5 32.0-36.0 RDW 14.3 High 11.6-13.7 Mean Platelet Volume 8.3 5.5-11.0 CBC Electronic ([facility]) 07/23/2016 WBC 7.4 3.6-9.6 RBC 4.64 3.90-5.70 Hemoglobin (Fma/CMC/CTX) 13.3 g/dL 12.1 - 17.2 Hematocrit (Fma/CMC/CTX) 40.3 % 36.1 - 50.3 Platelets 269 10^3/ul 150-400 Lymph% 45.6 % 17.0-48.0 Mixed% 6.5 Neutrophils % 47.9 Mean Corpuscular Vol 87 82.2-97.4 Mean Corpuscular Hemoglobin 28.6 27.6-33.3 Mean Corpuscular Hemo Concen 33.0 32.0-36.0 RDW 14.1 High 11.6-13.7 Mean Platelet Volume 7.8 5.5-11.0 Laboratory test finding 07/23/2016 Free T4 1.19 ng/dL 0.75-1.54 TSH 2.05 mIU/L 0.50-6.00 Lipid Profile 07/23/2016 Cholesterol 242 mg/dL High 120-200 Triglycerides 167 mg/dL 30-200 HDL Cholesterol 50 mg/dL 30-85 LDL (Calculated) 159 CALC High 0-129 VLDL Cholesterol 33 mg/dL 0-50 HDL Risk Factor 4.8 CALC High 0.0-4.4 Comprehensive Metabolic Prof 07/23/2016 Sodium 142 mEq/L 134-149 Potassium 4.9 mEq/L 3.6-5.5 Chloride 99 mEq/L 94-112 Carbon Dioxide 27 mEq/L 21-32 Glucose 96 mg/dL 70-105 BUN 25 mg/dL 6-26 Creatinine 0.8 mg/dL 0.6-1.4 BUN/Creat Ratio 31.3 CALC 8.0-36.0 Calcium 10.2 mg/dL 8.6-10.2 Total Protein 7.3 g/dL 6.4-8.3 Albumin 4.4 g/dL 3.8-5.5 Globulin 2.9 g/dL 2.0-4.8 A/G Ratio 1.5 CALC 0.6-2.3 Alk. Phosphatase 42 U/L 30-110 Alt (SGPT) 19 U/L 7-35 Ast (Sgot) 19 U/L 5-34 Total Bilirubin 0.3 mg/dL 0.2-1.3 GFR Non- >60 ml/min/1.73m^ >=60 GFR >60 ml/min/1.73m^ >=60 Laboratory test finding 12/26/2015 Free T4 0.85 ng/dL 0.75-1.54 TSH 4.59 mIU/L 0.50-6.00 CK 62 U/L 26-140 Lipid Profile 12/26/2015 Cholesterol 240 mg/dL High 120-200 Triglycerides 152 mg/dL 30-200 HDL Cholesterol 59 mg/dL 30-85 LDL (Calculated) 151 CALC High 0-129 VLDL Cholesterol 30 mg/dL 0-50 HDL Risk Factor 4.1 CALC 0.0-4.4 Comprehensive Metabolic Prof 12/26/2015 Sodium 146 mEq/L 134-149 Potassium 5.1 mEq/L 3.6-5.5 Chloride 106 mEq/L 94-112 Carbon Dioxide 26 mEq/L 21-32 Glucose 101 mg/dL 70-105 BUN 26 mg/dL 6-26 Creatinine 0.9 mg/dL 0.6-1.4 BUN/Creat Ratio 28.9 CALC 8.0-36.0 Calcium 9.6 mg/dL 8.6-10.2 Total Protein 7.6 g/dL 6.4-8.3 Albumin 4.7 g/dL 3.8-5.5 Globulin 2.9 g/dL 2.0-4.8 A/G Ratio 1.6 CALC 0.6-2.3 Alk. Phosphatase 49 U/L 30-110 Alt (SGPT) 23 U/L 7-35 Ast (Sgot) 20 U/L 5-34 Total Bilirubin 0.3 mg/dL 0.2-1.3 GFR Non- >60 ml/min/1.73m^ >=60 GFR >60 ml/min/1.73m^ >=60 Laboratory test finding 07/04/2015 TSH 2.14 mIU/L 0.50-6.00 Lipid Profile 03/21/2015 Cholesterol 217 mg/dL High 120-200 Triglycerides 137 mg/dL 30-200 HDL Cholesterol 50 mg/dL 30-85 LDL (Calculated) 140 CALC High 0-129 VLDL Cholesterol 27 mg/dL 0-50 HDL Risk Factor 4.3 CALC 0.0-4.4 Comprehensive Metabolic Prof 03/21/2015 Sodium 136 mEq/L 134-149 Potassium 4.3 mEq/L 3.6-5.5 Chloride 102 mEq/L 94-112 Carbon Dioxide 25 mEq/L 21-32 Glucose 96 mg/dL 70-105 BUN 28 mg/dL High 6-26 4 Creatinine 0.8 mg/dL 0.6-1.4 BUN/Creat Ratio 35.0 CALC 8.0-36.0 Calcium 9.3 mg/dL 8.6-10.2 Total Protein 7.1 g/dL 6.4-8.3 Albumin 4.6 g/dL 3.8-5.5 Globulin 2.5 g/dL 2.0-4.8 A/G Ratio 1.8 CALC 0.6-2.3 Alk. Phosphatase 39 U/L 30-110 Alt (SGPT) 14 U/L 7-35 Ast (Sgot) 17 U/L 5-34 Total Bilirubin 0.4 mg/dL 0.2-1.3 Laboratory test finding 03/21/2015 TSH 7.32 mIU/L High 0.50-6.00 5 Free T4 0.98 ng/dL 0.75-1.54 CBC Electronic (Fma) 03/21/2015 WBC 7.3 3.6-9.6 RBC 4.75 3.90-5.70 Hemoglobin ([facility]ma/CMC/CTX) 13.5 g/dL 12.1 - 17.2 Hematocrit ([facility]ma/CMC/CTX) 41.3 % 36.1 - 50.3 Platelets 330 10^3/ul 150-400 Lymph% 47.4 % 17.0-48.0 Mixed% 5.1 Neutrophils % 47.5 Mean Corpuscular Vol 87 82.2-97.4 Mean Corpuscular Hemoglobin 28.4 27.6-33.3 Mean Corpuscular Hemo Concen 32.7 32.0-36.0 RDW 13.6 11.6-13.7 Mean Platelet Volume 8.4 5.5-11.0 Lipid Profile 08/30/2014 Cholesterol 190 mg/dL 120-200 Triglycerides 121 mg/dL 30-200 HDL Cholesterol 45 mg/dL 30-85 LDL (Calculated) 121 CALC 0-129 VLDL Cholesterol 24 mg/dL 0-50 HDL Risk Factor 4.2 CALC 0.0-4.4 Comprehensive Metabolic Prof 08/30/2014 Sodium 136 mEq/L 134-149 Potassium 4.1 mEq/L 3.6-5.5 Chloride 97 mEq/L 94-112 Carbon Dioxide 27 mEq/L 21-32 Glucose 101 mg/dL 70-105 BUN 19 mg/dL 6-26 Creatinine 0.8 mg/dL 0.6-1.4 BUN/Creat Ratio 23.8 CALC 8.0-36.0 Calcium 10.2 mg/dL 8.6-10.2 Total Protein 7.6 g/dL 6.4-8.3 Albumin 4.7 g/dL 3.8-5.5 Globulin 2.9 g/dL 2.0-4.8 A/G Ratio 1.6 CALC 0.6-2.3 Alk. Phosphatase 48 U/L 30-110 Alt (SGPT) 25 U/L 7-35 Ast (Sgot) 22 U/L 5-34 Total Bilirubin 0.3 mg/dL 0.2-1.3 Laboratory test finding 08/30/2014 TSH 5.80 mIU/L 0.50-6.00 6 CK 57 U/L 26-140 Free T4 1.10 ng/dL 0.75-1.54 CBC Electronic (a) 08/30/2014 WBC 4.9 3.6-9.6 RBC 4.81 3.90-5.70 Hemoglobin ([facility]ma/CMC/CTX) 14.0 g/dL 12.1 - 17.2 Hematocrit ([facility]ma/CMC/CTX) 41.2 % 36.1 - 50.3 Platelets 310 10^3/ul 150-400 Lymph% 49.7 % High 17.0-48.0 Mixed% 7.4 Neutrophils % 42.9 Mean Corpuscular Vol 86 82.2-97.4 Mean Corpuscular Hemoglobin 29.0 27.6-33.3 Mean Corpuscular Hemo Concen 33.9 32.0-36.0 RDW 13.7 11.6-13.7 Mean Platelet Volume 7.7 5.5-11.0 Lipid Profile 02/15/2014 Cholesterol 223 mg/dL High 120-200 Triglycerides 160 mg/dL 30-200 HDL Cholesterol 54 mg/dL 30-85 LDL (Calculated) 137 CALC High 0-129 VLDL Cholesterol 32 mg/dL 0-50 HDL Risk Factor 4.1 CALC 0.0-4.4 Comprehensive Metabolic Prof 02/15/2014 Sodium 136 mEq/L 134-149 Potassium 4.6 mEq/L 3.6-5.5 Chloride 105 mEq/L 94-112 Carbon Dioxide 27 mEq/L 21-32 Glucose 101 mg/dL 70-105 BUN 19 mg/dL 6-26 Creatinine 0.9 mg/dL 0.6-1.4 BUN/Creat Ratio 21.1 CALC 8.0-36.0 Calcium 9.6 mg/dL 8.6-10.2 Total Protein 7.9 g/dL 6.3-8.1 Albumin 4.9 g/dL 3.8-5.5 Globulin 3.0 g/dL 2.0-4.8 A/G Ratio 1.6 CALC 0.6-2.3 Alk. Phosphatase 47 U/L 30-110 Alt (SGPT) 24 U/L 7-35 Ast (Sgot) 21 U/L 5-34 Total Bilirubin 0.4 mg/dL 0.2-1.3 Laboratory test finding 02/15/2014 TSH 7.14 mIU/L High 0.50-6.00 7 CK 69 U/L 26-140 Free T4 0.94 ng/dL 0.75-1.54 CBC Electronic (a) 02/15/2014 WBC 9.1 3.6-9.6 RBC 5.05 3.90-5.70 Hemoglobin ([facility]ma/CMC/CTX) 14.9 g/dL 12.1 - 17.2 Hematocrit ([facility]ma/CMC/CTX) 43.9 % 36.1 - 50.3 Platelets 262 10^3/ul 150-400 Lymph% 43.8 % 17.0-48.0 Mixed% 7.0 Neutrophils % 49.2 Mean Corpuscular Vol 87 82.2-97.4 Mean Corpuscular Hemoglobin 29.6 27.6-33.3 Mean Corpuscular Hemo Concen 34.0 32.0-36.0 RDW 12.6 11.6-13.7 Mean Platelet Volume 8.1 5.5-11.0 Lipid Profile 12/22/2012 Cholesterol 203 mg/dL High 120-200 HDL 46 mg/dL 30-85 Triglycerides 174 mg/dL 30-200 HDL Risk Factor 4.5 CALC High 0.0-4.4 LDL (Calculated) 123 CALC 0-129 VLDL (Calculated) 35 mg/dL 0-50 Comprehensive Metabolic Prof 12/22/2012 Albumin 4.8 g/dL 3.8-5.5 Alk. Phos. 42 U/L 30-110 Alt (SGPT) 20 U/L 7-35 Ast (Sgot) 21 U/L 5-34 BUN 18 mg/dL 6-26 Calcium 9.8 mg/dL 8.6-10.2 Chloride 102 mEq/L 94-112 Creatinine 0.9 mg/dL 0.6-1.4 Carbon Dioxide 25 mEq/L 21-32 Glucose 95 mg/dL 70-105 Sodium 139 mEq/L 134-149 Total Bilirubin 0.3 mg/dL 0.2-1.3 Total Protein 7.5 g/dL 6.3-8.1 Potassium 4.8 mEq/L 3.6-5.5 Globulin 2.8 g/dL 2.0-4.8 A/G Ratio 1.7 Calc 0.6-2.3 BUN/Creat Ratio 20.1 Calc 8.0-36.0 Laboratory test finding 12/22/2012 TSH 4.63 mIU/L 0.50-6.00 Creatine Kinase 60 U/L 26-140 CBC Electronic (a) 12/22/2012 WBC 6.2 3.6-9.6 RBC 4.53 3.90-5.70 Hemoglobin ([facility]ma/CMC/CTX) 13.4 g/dL 12.1 - 17.2 Hematocrit ([facility]/CMC/CTX) 39.4 % 36.1 - 50.3 Platelets 290 10^3/ul 150-400 Lymph% 53.3 High 20.5-51.1 8 Mixed% 6.0 Neutrophils % 40.7 Mean Corpuscular Vol 87 82.2-97.4 Mean Corpuscular Hemoglobin 29.4 27.6-33.3 Mean Corpuscular Hemo Concen 33.8 32.0-36.0 RDW 14.1 High 11.6-13.7 Mean Platelet Volume 8.5 6.5-11.0 Cytology 11/05/2012 Cy RUN DATE: 11/06/ <SEE NOTE> 9 Lipid Profile 06/16/2012 Cholesterol 216 mg/dL High 120-200 HDL 42 mg/dL 30-85 Triglycerides 179 mg/dL 30-200 HDL Risk Factor 5.2 CALC High 0.0-4.4 LDL (Calculated) 138 CALC High 0-129 VLDL (Calculated) 36 mg/dL 0-50 Laboratory test finding 06/16/2012 TSH 5.16 mIU/L 0.50-6.00 Free T4 1.02 ng/dL 0.75-1.54 Comp Metabolic Panel 06/10/2012 Sodium 137 mmol/L 135-145 Potassium 3.7 mmol/L 3.5-5.0 Chloride 102 mmol/L 101-111 Co2 (Carbon Dioxide) 26.0 mmol/L 22-32 Anion Gap 9.0 mmol/L 2-11 10 Glucose 119 mg/dL High 70-100 BUN 17 mg/dL 6-24 Creatinine 0.8 mg/dL 0.50-1.40 One Over Creatinine 1.25 BUN/Creatinine Ratio 21.3 High 8-20 Calcium 9.5 mg/dL 8.1-9.9 Total Protein 7.9 GM/DL 6.2-8.1 Albumin 4.6 GM/DL 3.6-5.4 Globulin 3.3 GM/DL 2-4 Albumin/Globulin Ratio 1.4 1-3 Bilirubin Total 0.7 mg/dL 0.4-1.5 11 Alkaline Phosphatase 34 U/L 30-110 Alt (SGPT) 24 U/L 14-54 Ast (Sgot) 26 U/L 12-42 eGFR Non- 74.7 > 60 eGFR 96.1 > 60 12 Laboratory test finding 06/10/2012 Magnesium 2.3 mg/dL 1.7-2.6 CPK (Creatine Kinase) 54 U/L 0-170 CKMB 06/10/2012 CKMB In NG/ML 1.1 NG/ML 0.3-4.0 % CKMB 2 %MB 0-9 13 Laboratory test finding 06/10/2012 Troponin-I 0 NG/ML 0-0.06 14 Protime 06/10/2012 Inr 0.88 0.88-1.13 15 Protime 10.4 SEC 10.3-13.5 16 Laboratory test finding 06/10/2012 PTT (Aptt) 25.2 SEC 25.1-38.5 D Dimer Quantitative < 200 NG/ML Less Than 230 17 CBC Auto Diff 06/10/2012 White Blood Count 8.3 CUMM 4.8-10.8 Red Cell Count 4.84 CUMM 4.2-5.4 Hemoglobin 14.5 g/dL 12.0-16.0 Hematocrit 43 % 35-47 Mean Corpuscular Volume 88 um3 79-97 Mean Corpuscular Hemoglob 30 pg 27-31 Mean Corpuscular HGB Cone 34 g/dL 32-36 Redcell Distribution WDTH 14 % 10.5-15 Platelet Count 280 CUMM 150-450 Mean Platelet Volume 8.9 um3 7.4-10.4 Absolute Neutrophil Count 4.4 1.5-7.7 Manual Differential 06/10/2012 Polysegmented Neutrophil 44 % 38-83 Band Neutrophil 1 % 0-8 Lymphocyte 35 % 25-47 Monocyte 7 % 0-13 Eosinophil 1 % 0-6 Basophil 1 % 0-2 Atypical Lymph 11 % High 0-6 RBC Morphology NORMAL Urinalysis 06/10/2012 Ua Color YELLOW Yellow Appearance-Urine CLEAR Clear Specific [place]-Ur 1.006 Low 1.010-1.030 Esterase-Urine NEGATIVE Negative Nitrite NEGATIVE Negative [id number] NEGATIVE Negative Protein-Urine NEGATIVE Negative PH-Urine 6.5 5-9 Blood-Urine NEGATIVE Negative Ketones-Urine NEGATIVE Negative Bilirubin-Ur NEGATIVE Negative Glucose-Urine NEGATIVE Negative Ict Hemoccult ([facility]ma) 05/27/2011 Ict Hemoccult (1) NEG Ict Hemoccult-(2) NEG Ict-Hemoccult (3) NEG CBC Auto Diff 05/14/2011 White Blood Count 6.6 CUMM 4.8-10.8 Red Cell Count 4.56 CUMM 4.2-5.4 Hemoglobin 13.6 g/dL 12.0-16.0 Hematocrit 39 % 35-47 Mean Corpuscular Volume 86 um3 79-97 Mean Corpuscular Hemoglob 30 pg 27-31 Mean Corpuscular HGB Cone 35 g/dL 32-36 Redcell Distribution WDTH 14 % 10.5-15 Platelet Count 243 CUMM 150-450 Mean Platelet Volume 9.5 um3 7.4-10.4 Gran % 59.6 % 38-83 Lymph % 28.3 % 25-47 Mononuclear % 9.2 % High 1-9 Eosinophil % 0.7 % 0-6 Basophil % 2.2 % High 0-2 Abs Lymphs 1.9 1.0-4.8 Abs Mononuclear 0.6 0-0.8 Absolute Neutrophil Count 3.9 1.5-7.7 Abs Eosinophils 0 0-0.6 Abs Basophils 0.1 0-0.2 18 Urinalysis 05/14/2011 Ua Color YELLOW Yellow Appearance-Urine CLEAR Clear Specific [place]-Ur 1.039 High 1.010-1.030 Esterase-Urine NEGATIVE Negative Nitrite NEGATIVE Negative [id number] NEGATIVE Negative Protein-Urine NEGATIVE Negative PH-Urine 5.0 5-9 Blood-Urine NEGATIVE Negative Ketones-Urine TRACE Negative Bilirubin-Ur SEE ICTOTEST Negative Glucose-Urine NEGATIVE Negative Laboratory test finding 05/14/2011 Ictotest NEGATIVE 19 Comp Metabolic Panel 05/14/2011 Sodium 136 mmol/L 135-145 Potassium 4.6 mmol/L 3.5-5.0 Chloride 103 mmol/L 101-111 Co2 (Carbon Dioxide) 27.0 mmol/L 22-32 Anion Gap 6.0 mmol/L 2-11 20 Glucose 94 mg/dL 70-100 BUN 17 mg/dL 6-24 Creatinine 0.7 mg/dL 0.50-1.40 One Over Creatinine 1.42 BUN/Creatinine Ratio 24.3 High 8-20 Calcium 9.4 mg/dL 8.1-9.9 Total Protein 6.4 GM/DL 6.2-8.1 Albumin 4.1 GM/DL 3.6-5.4 Globulin 2.3 GM/DL 2-4 Albumin/Globulin Ratio 1.8 1-3 Bilirubin Total 0.8 mg/dL 0.4-1.5 21 Alkaline Phosphatase 41 U/L 30-110 Alt (SGPT) 22 U/L 14-54 Ast (Sgot) 23 U/L 12-42 eGFR Non- 87.5 > 60 eGFR 112.6 > 60 22 Lipid Profile (Trig/Chol/HDL) 05/14/2011 Triglyceride 175 mg/dL 40-200 Cholesterol 198 mg/dL Less Than 200 23 High Density Lipoprotein 42 mg/dL 40-60 24 Cholesterol/HDL Ratio 4.71 AVERAGE High 1-4.44 Low Density Lipoprotein 121 mg/dL High Less Than 100 25 Laboratory test finding 05/14/2011 TSH 4.50 MIU/ML 0.34-5.60 Laboratory test finding 10/18/2010 Throat - Beta Strep Fma POSITIVE CBC (Fma) 02/27/2010 WBC 6.8 3.6-9.6 RBC 4.83 3.90-5.70 Hemoglobin (Fma/CMC/CTX) 14.7 g/dL 12.1 - 17.2 Hematocrit (Fma/CMC/CTX) 41.9 % 36.1 - 50.3 Mean Corpuscular Vol 86.7 82.2-97.4 Mean Corpuscular Hemaglobin 30.4 27.6-33.3 Mean Corpuscular Hemo Concen 35.1 33.0-36.0 Platelets 298 10^3/ul 150-400 Lymph% 39.0 20.5-51.1 Mixed% 10.2 Neutrophils % 50.8 RDW 13.7 11.6-13.7 Mean Platelet Volume 11.6 High 7.4-10.4 Laboratory test finding 02/27/2010 TSH 3.44 mIU/L 0.50-6.00 Free T4 0.91 ng/dL 0.75-1.54 Lipid Profile 02/27/2010 Cholesterol 227 mg/dL High 120-200 HDL 44 mg/dL 30-85 Triglycerides 154 mg/dL 30-200 HDL Risk Factor 5.2 CALC 4.2-7.0 LDL (Calculated) 153 CALC High 0-129 VLDL (Calculated) 31 mg/dL 0-50 Comprehensive Metabolic Prof 02/27/2010 Albumin 4.7 g/dL 3.8-5.5 Alk. Phos. 41 U/L 30-110 Alt (SGPT) 20 U/L 7-35 Ast (Sgot) 20 U/L 5-34 BUN 26 mg/dL 6-26 Calcium 9.7 mg/dL 8.6-10.2 Chloride 100 mEq/L 94-112 Creatinine 0.8 mg/dL 0.6-1.4 Carbon Dioxide 25 mEq/L 21-32 Glucose 102 mg/dL 70-105 Sodium 138 mEq/L 134-149 Total Bilirubin 0.3 mg/dL 0.2-1.3 Total Protein 7.7 g/dL 6.3-8.1 Potassium 4.5 mEq/L 3.6-5.5 Globulin 3.0 g/dL 2.0-4.8 A/G Ratio 1.6 Calc 0.6-2.2 BUN/Creat Ratio 31.9 Calc 8.0-36.0 Ua - Non Micro (a) 02/22/2010 Appearance CLEAR Color YELLOW Glucose, Urine (a/[facility]/CTX) NEG Bilirubin NEG Ketones NEG SP Grav 1.015 Blood NEG PH 7.0 Protein NEG Urobil 0.2 E.U./dL Nitrite NEG Leukocytes (a/[facility]/Centrex) NEG Lipid Profile 08/15/2009 Cholesterol 194 mg/dL 120-200 HDL 41 mg/dL 30-85 Triglycerides 242 mg/dL High 30-200 HDL Risk Factor 4.8 CALC 4.2-7.0 LDL (Calculated) 105 CALC 0-129 VLDL (Calculated) 48 mg/dL 0-50 Ict Hemoccult ([facility]) 04/15/2009 Ict Hemoccult (1) neg Ict Hemoccult-(2) neg Ict-Hemoccult (3) neg Comprehensive Metabolic Prof 03/19/2009 Albumin 4.7 g/dL 3.8-5.5 26 Alk. Phos. 49 U/L 30-110 26 Alt (SGPT) 26 U/L 7-35 26 Ast (Sgot) 22 U/L 5-34 26 BUN 18 mg/dL 6-26 26 Calcium 9.6 mg/dL 8.6-10.2 26 Chloride 101 mEq/L 94-112 26 Creatinine 0.8 mg/dL 0.6-1.4 26 Carbon Dioxide 24 mEq/L 21-32 26 Glucose 100 mg/dL 70-105 26 Sodium 140 mEq/L 134-149 26 Total Bilirubin 0.3 mg/dL 0.2-1.3 26 Total Protein 7.6 g/dL 6.3-8.1 26 Potassium 4.3 mEq/L 3.6-5.5 26 Globulin 2.9 g/dL 2.0-4.8 26 A/G Ratio 1.6 Calc 0.6-2.2 26 BUN/Creat Ratio 21.4 Calc 8.0-36.0 26 Lipid Profile 03/19/2009 Cholesterol 198 mg/dL 120-200 26 HDL 39 mg/dL 30-85 26 Triglycerides 281 mg/dL High 30-200 26 HDL Risk Factor 5.1 CALC 4.2-7.0 26 LDL (Calculated) 102 CALC 0-129 26, 27 VLDL (Calculated) 56 mg/dL High 0-50 26 Complete Blood Count 03/19/2009 WBC 6.6 x10^3/uL 3.6-9.6 26 Gran# 4.3 x10^3/uL 1.5-7.2 26 Gran% 64.9 % 42.2-75.2 26 HCT 43 % 36-50 26 HGB 14.2 g/dL 12.1-17.2 26 Lymph# 1.9 x10^3/uL 0.7-4.9 26 Lymph% 28.3 % 20.5-51.1 26 MCH 27.7 pg 27.6-33.3 26 MCV 84.8 fL 82.2-97.4 26 MCHC 33.0 g/dL 33.0-35.5 26 Mo# 0.4 x10^3/uL 0.1-0.9 26 Mo% 6.8 % 1.7-9.3 26 MPV 10.3 fL 7.4-10.4 26 PLT 288 x10^3/uL 150-400 26 RBC 5.10 x10^6/uL 3.90-5.70 26 RDW 12.4 % 11.6-13.7 26 Laboratory test finding 03/19/2009 TSH 5.58 mIU/L 0.50-6.00 26 Free T4 0.94 ng/dL 0.75-1.54 26 LDL (Direct) 105 mg/dL 0-130 26 Ua - Non Micro (a) 03/19/2009 Appearance CLEAR Color YELLOW Glucose, Urine (a/[facility]/CTX) NEG Bilirubin NEG Ketones NEG SP Grav 1.010 Blood NEG PH 7.0 Protein NEG Urobil 0.2 Nitrite NEG Leukocytes (a/[facility]/Centrex) NEG Ict Hemoccult ([facility]ma) 01/30/2008 Ict Hemoccult (1) NEG Ict Hemoccult-(2) NEG Ict-Hemoccult (3) NEG Ua - Non Micro (a) 12/08/2007 Appearance CLEAR Color YELLOW Glucose, Urine (a/[facility]/CTX) NEG Bilirubin NEG Ketones NEG SP Grav 1.025 Blood NEG PH 5.5 Protein NEG Urobil 0.2 Nitrite NEG Leukocytes ([facility]rex) NEG CBC With Electronic Diff 12/08/2007 White Blood Count 7.3 CUMM 4.8-10.8 Abs Basophils 0.1 0-0.2 Abs Eosinophils 0.1 0-0.6 Absolute Neutrophil Count 3.6 1.5-7.7 Abs Lymphs 2.9 1.0-4.8 Abs Mononuclear 0.6 0-0.8 Basophil % 0.7 % 0-2 Hematocrit 39 % 35-47 Hemoglobin 13.4 g/dL 12.0-16.0 Eosinophil % 1.4 % 0-6 Gran % 50.0 % 38-83 Lymph % 39.7 % 20-45 Mean Corpuscular HGB Cone 34 g/dL 32-36 Mean Corpuscular Hemoglob 29 pg 27-31 Mean Corpuscular Volume 84 um3 79-97 Mean Platelet Volume 10.9 um3 High 7.4-10.4 Mononuclear % 8.2 % 1-9 Platelet Count 299 CUMM 150-450 Red Cell Count 4.64 CUMM 4.2-5.4 Redcell Distribution WDTH 13 % 10.5-15 Laboratory test finding 12/08/2007 TSH 5.55 mIU/L 0.50-6.00 26 LDL (Direct) 123 mg/dL 0-130 26 Comprehensive Metabolic Prof 12/08/2007 Albumin 4.4 g/dL 3.8-5.5 26 Alk. Phos. 41 U/L 30-110 26 Alt (SGPT) 19 U/L 7-35 26 Ast (Sgot) 22 U/L 5-34 26 BUN 28 mg/dL High 6-26 26, 28 Calcium 9.4 mg/dL 8.6-10.2 26 Chloride 100 mEq/L 94-112 26 Creatinine 1.0 mg/dL 0.6-1.4 26 Carbon Dioxide 25 mEq/L 21-32 26 Glucose 97 mg/dL 70-105 26 Sodium 136 mEq/L 134-149 26 Total Bilirubin 0.3 mg/dL 0.2-1.3 26 Total Protein 7.1 g/dL 6.3-8.1 26 Potassium 4.4 mEq/L 3.6-5.5 26 Globulin 2.7 g/dL 2.0-4.8 26 A/G Ratio 1.6 Calc 0.6-2.2 26 BUN/Creat Ratio 28.1 Calc 8.0-36.0 26 Lipid Profile 12/08/2007 Cholesterol 216 mg/dL High 120-200 26 HDL 44 mg/dL 30-85 26 Triglycerides 275 mg/dL High 30-200 26 HDL Risk Factor 4.9 CALC 4.2-7.0 26 LDL (Calculated) 117 CALC 0-129 26 VLDL (Calculated) 55 mg/dL High 0-50 26 Lipid Profile 04/14/2007 Cholesterol/HDL Ratio 4.59 AVERAGE High 1-4.44 (Trig/Chol/HDL) Cholesterol 179 mg/dL Less Than 200 29 Triglyceride 171 mg/dL 40-200 High Density Lipoprotein 39 mg/dL Low 40-60 30 Low Density Lipoprotein 106 mg/dL High Less Than 100 31 Laboratory test finding 02/25/2006 Varicella Zoster Igg 4.59 Index 32 Occult Blood (3) 12/09/2005 Occult Blood #1 NEG Low 11/30/05 Occult Blood #2 NEG Low 12/01/05 Occult Blood #3 NEG Low 12/02/05 Laboratory test finding 10/15/2005 [facility] Labs CMP;LIPID;T4;TSH; See Image Report Laboratory test finding 04/04/2005 T-4 Total 5.0 g/dL 4.5-10.9 CBC Electronic (a) 04/02/2005 WBC 6.5 3.6-9.6 Lymphocytes 33.8 % 20.5 - 51.1 Monocytes 7.3 % 1.7-9.3 Granulocytes 58.9 % 42.2 - 75.2 Lymphocytes 2.2 10^3/uL 0.7 - 4.9 Monocytes 0.5 10^3/uL 0.1 - 0.9 Granulocytes 3.8 10^3/uL 1.5 - 7.2 RBC 5.07 3.90-5.70 Hemoglobin (Fma/CMC/CTX) 15.1 g/dL 12.1 - 17.2 Hematocrit (a/CMC/CTX) 44.2 % 36.1 - 50.3 Mean Corpuscular Vol 87.3 82.2-97.4 Mean Corpuscular Hemaglobin 29.8 27.6-33.3 Mean Corpuscular Hemo Concen 34.2 33.0-36.0 RDW 12.9 11.6-13.7 Platelets 331. 10^3/ul 150-400 Mean Platelet Volume 9.1 7.4-10.4 Lipid Profile ([facility]) Female 04/02/2005 Cholesterol 229 mg/dL High 120-200 Triglyceride 160 mg/dL 30-200 HDL-Chol 35 mg/dL 30-85 LDL, Calculated (a/[facility]) 162 CALC High 0-129 LDL Direct (/[facility]rex) - mg/dL 0-130 VLDL 32 0-50 HDL Risk Factor ([facility]) 6.6 CALC 4.2-7.0 Laboratory test finding 04/02/2005 TSH (a/[facility]rex) 1.20 uIU/ml 0.5- 6.0 Ast Sgot 24 U/L 5-40 Free T3 ([facility]) 2.63 pg/mL 2.0-4.9 Basic Metabolic ([facility]) 04/02/2005 Glucose, Serum (a/[facility]/CTX) 90 mg/dL 70 -105 BUN (a/[facility]/Centrex) 18 mg/dL 6-26 Creatinine (a/[facility]/CTX) 0.7 mg/dL 0.6-1.4 BUN/Creatinin Ratio 24.8 8.0-36 Sodium 139 134-149 Potassium 4.4 3.6-5.5 Chloride 96 mEq/L 94-112 Co2 26 21-32 Calcium (a/[facility]/Centrex) 9.5 mg/dL 8.6-10.2 Laboratory test finding 01/29/2005 TSH (a/[facility]) 3.7 0.34-5.60 Free T4 (a/[facility]/Centrex) 11.87 ng/dL High 0.58-1.64 Lipid Profile ([facility]) 01/29/2005 Triglyceride 227 mg/dL High 40-200 Cholesterol ([facility]/Centrex) 198 mg/dL <200 HDL-Chol 45 40-60 Cholesterol / HDL Ratio 4.40 AVG 1-4.97 LDL, Calculated ([facility]) 108 1-130 Stool For Occult Blood X 3 08/24/2004 Occult Blood #1 NEG 08/16/04 Occult Blood #2 NEG 08/17/04 Occult Blood #3 NEG 08/17/04 Laboratory test finding 08/17/2004 B12 ([facility]) 434 180-914 TSH ([facility]) 5.52 0.34-5.60 Lipid Profile ([facility] 10/11/2003 Triglyceride 92 mg/dL 40-200 Cholesterol ([facility]) 225 mg/dL High <200 HDL-Chol 45 40-60 Cholesterol / HDL Ratio 5.00 AVG High 1-4.44 LDL, Calculated ([facility] 162 High <100 CBC Electronic ([facility]) 03/01/2003 WBC 6.6 CUMM 4.8-10.8 RBC 4.68 CUMM 4.2-5.4 Hemoglobin ([facility]) 14.3 g/dL 12.0-16.0 Hematocrit ([facility]) 42 % 35-47 Mean Corpuscular Vol 89 UM3 79-97 Mean Corpuscular Hemaglobin 31 pg 27-31 Mean Corpuscular Hemo Concen 34 g/dL 32-36 RDW 12 10.5-15 Platelets 323 CUMM 150-450 Mean Platelet Volume 9.2 7.4-10.4 Granulocytes 56.7 % 38-83 Lymphocytes 36.5 % 20-45 Monocytes 5.2 % 1-9 Eosinophil 1.6 0-6 Basophil% 0 0-2 Abs Lymphs 2.4 1.0-4.8 Abs Mononuclear 0.3 0-0.8 Abs Grans 3.8 1.5-7.7 Abs Eosinophils 0.1 0-0.6 Abs Basophils 0 0-0.2 Free T4/TSH ([facility]) 03/01/2003 TSH ([facility]) 0.92 0.34- 5.60 Free T4 ([facility]) 5.56 ng/dL High 0.58-1.64 Lipid Profile ([facility]) 03/01/2003 Triglyceride 137 mg/dL 40-200 Cholesterol ([facility]) 226 mg/dL High <200 HDL-Chol 38 Low 40-60 Cholesterol / HDL Ratio 5.95 AVG High 1-4.44 LDL, Calculated ([facility]) 161 High <100 CBC With Manual Diff ([facility]) 03/19/2002 WBC 7.2 4.8-10.8 RBC 4.86 4.2-5.4 Hemoglobin 14.5 g/dL 12.0-16.0 Hematocrit 43 % 35-47 Mean Corpuscular Vol 88 79-97 Mean Corpuscular Hemaglobin 30 27-31 Mean Corpuscular Hemo Concen 34 32-36 RDW 13 10.5-15 Platelets 326 CUMM 150-450 Mean Platelet Volume 10.1 7.4-10.4 Poly From [facility] 59 38-83 Band - 0-8 Lymph From [facility] 37 5-47 [place] From [facility] 4 0-13 Eos From [facility] - 0-6 Atypical Lymph - 0-6 Morphology NORMAL Basophils - Laboratory test finding 03/19/2002 TSH 9.6 High 0.3-4.5 Comp+Lipid ([facility]) 03/19/2002 Sodium 138 mmol/L 135-145 Potassium 4.4 3.5-5.0 Chloride 101 mmol/L 95-108 Co2 22.6 21-33 Glucose 104 mg/dL 70-105 BUN 27 High 6-22 Creatinine 0.8 mg/dL 0.5-1.4 BUN/Creatinin Ratio 33.8 High 8-20 Calcium 9.8 mg/dL 8.7-10.2 Total Protein 8.0 GM/DL 6.2-8.1 Albumin 4.6 3.6-5.4 Globulin 3.4 2-4 A/G Ratio 1.4 0.9-2 Total Bilirubin 0.4 mg/dL 0.1-1.0 Triglyceride 118 mg/dL 40-200 Cholesterol 201 mg/dL High <200 HDL-Chol 44 40-60 Cholesterol / HDL Ratio 4.57 AVG 1-4.97 LDL-Calculated 133 High <100 Alkaline Phosphatase 55 U/L 30-110 Alt (SGPT) 20 1-40 Ast (Sgot) 20 1-34 Laboratory test finding 01/24/2000 Wound C&S SEE DETAIL Final 33 Type And Screen 01/03/2000 Patient Abo, RH A NEG Antibody Screen NEGATIVE Negative Spec Discarded On 01-14-00 CBC Electronic ([facility]) 01/03/2000 WBC 10.2 CUMM 4.8-10.8 RBC 4.29 CUMM 4.2-5.4 Hemoglobin 11.9 g/dL Low 12.0-16.0 Hematocrit 35 % 35-47 Mean Corpuscular Vol 82 um3 79-97 Mean Corpuscular Hemaglobin 28 pg 27-31 Mean Corpuscular Hemo Concen 34 g/dL 32-36 RDW 13 % 10.5-15 Platelets 388 CUMM 150-450 Mean Platelet Volume 8.8 um3 7.4-10.4 Granulocytes 74.8 % 38-83 Lymphocytes 19.4 % Low 20-45 Monocytes 5.5 % 1-9 Eosinophil 0.3 % 0-6 Basophil% 0 % 0-2 Abs Lymphs 2.0 1.0-4.8 Abs Mononuclear 0.6 0-0.8 Abs Grans 7.6 1.5-7.7 Abs Eosinophils 0 0-0.6 Abs Basophils 0 0-0.2 1 Because ethnic data is not always readily available, this report includes an eGFR for both -Americans and non- Americans. The National Kidney Disease Education Program (NKDEP) does not endorse the use of the MDRD equation for patients that are not between the ages of 18 and 70, are , have extremes of body size, muscle mass, or nutritional status, or are non- or non-. According to the National Kid[employer] Foundation, irrespective of diagnosis, the stage of the disease is based on the level of kidney function: Stage Description GFR(mL/min/1.73 m(2)) 1 Kidney damage with normal or decreased GFR 90 2 Kidney damage with mild decrease in GFR 60-89 3 Moderate decrease in GFR 30-59 4 Severe decrease in GFR 15-29 5 Kidney failure <15 (or dialysis) 2 RESULTS VERIFIED BY REPEAT ANALYSIS 3 RESULTS VERIFIED BY REPEAT ANALYSIS 4 RESULTS VERIFIED BY REPEAT ANALYSIS 5 RESULTS VERIFIED BY REPEAT ANALYSIS 6 FASTING 7 RESULTS VERIFIED BY REPEAT ANALYSIS 8 RECHECKED 9 RUN DATE: 11/06/12 [facility] LAB LIVE PAGE 1 RUN TIME: [address] [place] [id number] Specimen Inquiry Name: NICOLE HALL : [address]: Lubna Cruz NP Acct: [id number] Unit: [id number] AGE: 57 Location: [facility] Re11/05/12 SEX: F Status: REG REF SPEC: [id number] LUC: 11/05/[address] [facility] [address]: Lubna Cruz NP REQ: [id number] RECD: 11/06/12 STATUS: CLAUDIA CHAVEZ DR: Baltazar Bran MD _ ORDERED: IMAGE ANALYSIS FINAL DIAGNOSIS Negative for Intraepithelial lesion or Malignancy A. Vaginal Specimen Adequacy: Satisfactory of evaluation Patient Information: HPV: Thin Layer Pap Test only (NO HPV TESTING) Actual Specimen Date: 11/05/12 LMP If Unknown: 1998 ?: N Post Menopausal?: Y Hysterectomy?: Y Previous Abnormal Pap Smears?:N Signed (signature on file) MOY Price (ASCP) 11/06 1503 This Pap test was evaluated with the assistance of the ThinPrep Test Imaging System. Due to cytologic findings at the electro mechanical technologist microscope, comprehensive manual rescreening by a Parts Counter Associate may be required. The Pap Smear is a screening test designed to aid in the detection of premalignant and malignant conditions of the uterine cervix. It is not a diagnostic procedure and should not be used as the sole means of detecting cervical cancer. Both false- positive and false- negative reports do occur. Depending on your risk status, a Pap smear shoudl be obtained and evaluated every 1-3 years. END OF REPORT * ML=Testing performed at Main Lab DEPARTMENT OF PATHOLOGY, [address] [place] [address] Radu Bojorquez M.D. Director [facility] Permit #[id number] 10 Anion gap measurement may be of limited value in the presence of any alkalosis, especially in a combined acid base disorder. . 11 A metabolite of Naproxen, O-desmethylnaproxen, has been shown to interfere with the Jendrassik-Shivam method for measuring total bilirubin. Samples from patients who have taken Naproxen have shown spurious elevation in total bilirubin levels. 12 Because ethnic data is not always readily available, this report includes an eGFR for both -Americans and non- Americans. The National Kidney Disease Education Program (NKDEP) does not endorse the use of the MDRD equation for patients that are not between the ages of 18 and 70, are , have extremes of body size, muscle mass, or nutritional status, or are non- or non-. According to the National Kidney Foundation, irrespective of diagnosis, the stage of the disease is based on the level of kidney function: Stage Description GFR(mL/min/1.73 m(2)) 1 Kidney damage with normal or decreased GFR 90 2 Kidney damage with mild decrease in GFR 60-89 3 Moderate decrease in GFR 30-59 4 Severe decrease in GFR 15-29 5 Kidney failure <15 (or dialysis) 13 INTERPRETATION %CK-MB < 5% NOT SUPPORTIVE OF DIAGNOSIS OF CT 5 - <10% INDETERMINATE; SUGGEST SERIAL STUDIES IF CLINICALLY INDICATED 10% OR > CONSISTENT WITH DIAGNOSIS OF CT . 14 New Reference Range and Interpretation effective 06/14/2002 TnI (ng/ml) INTERPRETATION Less Than 0.06 ng/mL NOT SUPPORTIVE OF DIAGNOSIS OF CT 0.06 - 0.50 ng/ml INDETERMINATE: SUGGEST SERIAL STUDIES IF CLINICALLY INDICATED. Greater than 0.5 ng/mL CONSISTENT WITH DIAGNOSIS OF CT . 15 Recommended INR for Patients on Oral Anticoagulants Prophylaxis 2.0 - 3.0 Treatment of thrombosis 2.0 - 3.0 Prevention of embolism 2.0 - 3.0 Prevention of embolism from prosthetic heart valves 2.5 - 3.5 16 DIAGNOSIS,TREATMENT,AND THERAPY MUST BE BASED ON THE INR VALUE ALONE. 17 Please note: The following may produce a false positive D Dimer test: - Rheumatoid factor greater than 1400 IU/ml - Plasma hemoglobin greater than 0.5 gm/dl - Bilirubin greater than 18 mg/dl - Triglycerides greater than 1327 mg/dl - FDP greater than 10 ug/ml . 18 Basophilia % 19 ICTOTEST IS A QUALITATIVE CONFIRMATORY TEST FOR BILIRUBIN. 20 Anion gap measurement may be of limited value in the presence of any alkalosis, especially in a combined acid base disorder. . 21 A metabolite of Naproxen, O-desmethylnaproxen, has been shown to interfere with the Jendrassik-[place] method for measuring total bilirubin. Samples from patients who have taken Naproxen have shown spurious elevation in total bilirubin levels. 22 Because ethnic data is not always readily available, this report includes an eGFR for both -Americans and non- Americans. The National Kidney Disease Education Program (NKDEP) does not endorse the use of the MDRD equation for patients that are not between the ages of 18 and 70, are , have extremes of body size, muscle mass, or nutritional status, or are non- or non-. According to the National Kidney Foundation, irrespective of diagnosis, the stage of the disease is based on the level of kidney function: Stage Description GFR(mL/min/1.73 m(2)) 1 Kidney damage with normal or decreased GFR 90 2 Kidney damage with mild decrease in GFR 60-89 3 Moderate decrease in GFR 30-59 4 Severe decrease in GFR 15-29 5 Kidney failure <15 (or dialysis) 23 CHOLESTEROL INTERPRETATION: Desirable: Less than 200 MG/DL Borderline-High Risk: 200-239 MG/DL High-Risk: 240 MG/DL and over 24 HDL INTERPRETATION: Undesirable: High Risk: Less than 40 MG/DL Desirable: Low Risk: Greater than 60 MG/DL 25 LDL INTERPRETATION: Low Risk Optimal Level: LDL Less than 100 MG/DL Near or Above Optimal: LDL 100-129 MG/DL Borderline High Risk: LDL 130-159 MG/DL High Risk: LDL 160-189 MG/DL Very High Risk: LDL Greater than 189 MG/DL 26 FASTING 27 INVALID 28 RESULT ANGELA'D 29 Classification: Desirable . 30 Classification: Low . 31 CALCULATED LDL APPROXIMATES THE VALUE OF A DIRECT LDL MEASUREMENT. Classification: Near or above optimal . 32 < .90 Neg (No Immunity) .91- 1.09 Equivocal >=1.10 Positive . 33 FROM HYSTERECTOMY INCISION FEW COAG NEG STAPHYLOCOCCUS--SENSITIVITY NOT PERFORMED MANY PREVOTELLA SP. MANY PEPTOSTREPTOCOCCUS SP. Procedures Date CPT Code Description Status 05/16/2018 Mammogram Completed 04/04/2017 Mammogram Completed 02/04/2016 Mammogram Completed 12/29/2014 Mammogram Completed 11/07/2013 Mammogram Completed 01/09/2013 Colonoscopy Completed 11/05/2012 Mammogram Completed 07/04/2012 28836 Electrocardiogram Complete Completed 09/28/2011 Mammogram Completed 09/02/2010 Mammogram Completed 08/11/2009 Mammogram Completed 03/19/2009 34121 Electrocardiogram Complete Completed 07/29/2008 Mammogram Completed 12/04/2007 85258 Electrocardiogram Complete Completed 05/17/2006 Mammogram Completed 02/21/2006 64516 Electrocardiogram Complete Completed 02/26/2002 80728 Electrocardiogram Complete Completed Encounters Type Date Location Provider CPT E/M Dx Office Visit 02/20/2018 6:00p Main Office Baltazar Bran M.D. 25194 E78.4 I10 G20 M25.561 Office Visit 08/17/2017 11:00a Main Office Baltazar Bran M.D. 76393 I10 E78.4 G20 M54.5 E83.52 Z23 E78.1 Office Visit 02/14/2017 6:00p Main Office Baltazar Bran M.D. 76555 I10 E78.4 G20 M54.5 E83.52 Office Visit 11/15/2016 7:00p Main Office Baltazar Bran M.D. 48987 M54.5 I10 E78.4 Office Visit 06/28/2016 6:20p Main Office Baltazar Bran M.D. 86689 G47.09 E78.2 I10 M54.5 G25.0 E04.0 Z23 Office Visit 12/22/2015 6:00p Main Office Baltazar Bran M.D. 19217 I10 E78.2 M54.5 G25.0 E03.4 Z12.11 Office Visit 08/11/2015 6:00p Main Office Baltazar Bran M.D. 06410 I10 E78.4 M54.5 E04.0 G25.0 Z23 Office Visit 06/02/2015 6:00p Main Office Christina PrettyVesna-C 57738 724.3 Office Visit 03/03/2015 6:00p Main Office Baltazar Bran M.D. 02061 272.4 401.1 244.9 724.5 Office Visit 01/17/2015 9:30a Main Office Adrianne GarciaNeel 63733 782.1 Office Visit 08/26/2014 7:40p Main Office Baltazar Bran M.D. 90388 v04.81 272.4 244.9 240.9 724.5 401.1 Office Visit 02/06/2014 6:30p Main Office Baltazar Bran M.D. 65635 V74.1 Office Visit 02/04/2014 6:20p Main Office Baltazar Bran M.D. 04165 V74.1 401.1 272.4 240.9 724.5 Office Visit 06/11/2013 6:20p Main Office Baltazar Bran M.D. 05184 v04.81 401.1 272.4 240.9 Office Visit 12/18/2012 6:20p Main Office Baltazar Bran M.D. 69903 401.1 272.4 724.5 240.9 530.81 Office Visit 09/25/2012 6:20p Main Office Baltazar Bran M.D. 61684 724.5 272.4 401.1 Office Visit 07/04/2012 6:20p Main Office Baltazar Bran M.D. 36066 535.00 Office Visit 06/12/2012 7:00p Main Office Baltazar Bran M.D. 25955 785.1 v04.81 v06.5 Office Visit 10/18/2011 8:00p Main Office Baltazar Bran M.D. 79353 401.1 272.4 240.9 V76.41 724.5 729.5 Office Visit 05/10/2011 7:20p Main Office Baltazar Bran M.D. 67251 401.9 272.4 240.9 V76.41 Office Visit 10/18/2010 10:10a Main Office Owen Oh M.D. 69750 462 465.9 401.9 Office Visit 02/22/2010 1:00p [facility] Baltazar Bran M.D. 47735 240.9 401.9 272.4 V76.41 V74.1 v74.1 Office Visit 06/16/2009 3:00p Main Office Baltazar Bran M.D. 97886 401.9 272.4 240.9 Office Visit 03/19/2009 8:00a Main Office Baltazar Bran M.D. 28867 401.9 272.4 786.50 240.9 V76.41 272.1 Office Visit 01/12/2009 6:00p Main Office ANGIE Miller 80471 401.9 Office Visit 03/26/2008 7:00p Main Office Flash Middleton M.D. 76336 272.4 401.9 Office Visit 12/04/2007 7:20p Main Office Baltazar Bran M.D. 83944 272.4 401.9 240.9 782.1 V76.41 477.9 794.31 272.1 250.00 Office Visit 04/19/2007 6:15p Main Office Neel Miranda 45464 272.4 401.9 Office Visit 02/19/2007 7:15p Main Office ANGIE Miller 19900 719.46 Office Visit 10/18/2006 8:00p Main Office Neel Ruiz 45670 401.9 272.4 Office Visit 06/03/2006 12:15p Main Office Ana ParksANGIE 16349 372.00 Office Visit 02/21/2006 6:30p Main Office Baltazar Bran M.D. 24041 401.9 272.4 240.9 785.2 V74.1 Office Visit 10/04/2005 8:30p Main Office Baltazar Bran M.D. 78325 401.9 272.4 240.9 Office Visit 04/02/2005 9:30a Main Office Baltazar Bran M.D. 30361 401.9 272.4 240.9 Office Visit 11/18/2004 6:15p Main Office Baltazar Bran M.D. 48608 401.9 272.4 Office Visit 07/20/2004 7:45p Main Office Baltazar Bran M.D. 71845 272.4 401.1 Office Visit 05/04/2004 7:45p Main Office Jacob DillANGIE 48987 401.9 272.4 V70.0 V74.1 Office Visit 11/05/2003 8:15p Main Office Baltazar Bran M.D. 27119 401.1 272.4 Office Visit 07/22/2003 8:00p Main Office Baltazar Bran M.D. 86555 240.9 272.4 401.1 V04.8 Office Visit 04/01/2003 8:15p Main Office Baltazar Bran M.D. 22418 240.9 272.4 401.1 Office Visit 07/16/2002 6:30p Main Office Baltazar Bran M.D. 70347 401.1 244.9 V04.8 Office Visit 04/09/2002 8:00p Main Office Neel Miranda 64871 Office Visit 02/26/2002 7:40p Main Office Baltazar Bran M.D. 05103 Office Visit 10/22/2001 6:40p Main Office Radu Victor M.D. 35677 Office Visit 03/06/2001 7:00p Main Office Radu Victor M.D. 43549 Office Visit 04/19/2000 7:30p Main Office Adrianne Garcia, Pbsriram-C 61636 Plan of Care Future Appointment(s):02/28/2019 8:00 am - Baltazar Bran M.D. at Main [facility]umc9408/23/2018 - Baltazar Bran M.D.I10 Essential (primary) hypertensionNew Labs:Comp Metabolic-ALL Lab CompaniLipid Panel-ALL Lab CompaniesCBC Electronic-ALL Lab CompaniUa - Non Micro (Fma)Free T4 (Fma/[facility]) TSH (Fma/[facility])Comments:continue current medication, call if bp elevation is persistent above 140/90G20 Parkinson's diseaseComments:continue present medication,and follow up with PoabmztboO84.561 Pain in right kneeComments:I feel she is medically clear for the planned total right knee replacement, lab work and EKG are xtfdvzcY12.0 Nontoxic diffuse goiterComments:continue present medication, levothyroxine 75 mcgE78.49 Other hyperlipidemiaComments:continue present medication , recheck lab workZ01.818 Encounter for other preprocedural examination
[2018-09-21] MEDS ORDERED: Lactated Ringers 1000 ML Bag* 1,000 ML IV SCH (06:00)
[2018-09-21] MEDS ORDERED: Famotidine IV* 10 MG/ML 2 ML (20 mg) IV ONE (06:00)
[2018-09-21] MEDS ORDERED: Dexamethasone IV* 4 MG/ML 1 ML (4 MG) IV SLOW PU ONE (06:00)
[2018-09-21] MEDS ORDERED: Dexamethasone IV* 4 MG/ML 1 ML (4 MG) ONE (06:10)
[2018-09-21] MEDS ORDERED: Buffered Lidocaine 1% SYRIN* 1 ML/SYRINGE ONE (06:10)
[2018-09-21] MEDS ORDERED: ceFAZolin 2 GM PREMIX in ORs 2 GM/50 ML BAG IVPB ONE (06:10)
[2018-09-21] MEDS ORDERED: Famotidine IV* 10 MG/ML 2 ML (20 mg) ONE (06:10)
[2018-09-21] MEDS ORDERED: Bupivacaine 0.25% W/EPI* 10 ML SDV ONE (06:47)
[2018-09-21] MEDS ORDERED: fentaNYL* 50 MCG/ML 2 ML VIAL (100 MCG VIAL) ONE (07:07)
[2018-09-21] MEDS ORDERED: Midazolam* 1 MG/ML 2 ML VIAL (2 MG) ONE (07:07)
[2018-09-21] MEDS ORDERED: Lidocaine 1%* 5 ML VIAL ONE (07:21)
[2018-09-21] MEDS ORDERED: ROPIVACAINE 5 MG/ML 30 ML BTL (0.5%) ONE (07:22)
[2018-09-21] MEDS ORDERED: Propofol* 10 MG/ML 20 ML BTL ONE ×2 (08:25→08:34)
[2018-09-21] MEDS ORDERED: Lidocaine 2% PF * 5 ML VIAL ONE (08:25)
[2018-09-21] MEDS ORDERED: Bupivacaine-MPF SPINAL* 7.5 MG/ML - 2ML AMP ONE (08:25)
[2018-09-21] MEDS ORDERED: Acetaminophen IV 1GM/100ML * 1,000 MG/100 ML VIAL IVPB ONE (08:45)
[2018-09-21] MEDS ORDERED: oxyCODONE TAB* 5 MG TAB PO PRN (08:45)
[2018-09-21] MEDS ORDERED: Ketorolac INJ* 30 MG/ML 1 ML VIAL IV PRN (08:45)
[2018-09-21] MEDS ORDERED: fentaNYL* 50 MCG/ML 2 ML VIAL (100 MCG VIAL) IV PRN (08:45)
[2018-09-21] MEDS ORDERED: Naloxone* 0.4 MG/ML 1 ML VIAL IV PRN (08:45)
[2018-09-21] MEDS ORDERED: Morphine VIAL* 4 MG/ML VIAL (1 ml vial) IV PRN (08:45)
[2018-09-21] MEDS ORDERED: Ondansetron INJ* 2 MG/ML VIAL IV PRN (08:45)
[2018-09-21] MEDS ORDERED: EPHEDrine (Pressors)* 50 MG/ML VIAL ONE (08:51)
[2018-09-21] MEDS ORDERED: diPHENhydraMINE IV* 50 MG/ML 1 ml VIAL (BENADRYL) IV PRN (10:27)
[2018-09-21] MEDS ORDERED: Magnesium Hydroxide LIQ* 30 ML UDC PO PRN (10:27)
[2018-09-21] MEDS ORDERED: Bisacodyl SUPP* 10 MG SUPP PR PRN (10:27)
[2018-09-21] MEDS ORDERED: Acetaminophen TAB* 325 MG PO PRN (10:27)
[2018-09-21] MEDS: Lactated Ringers 1000 ML Bag* 1,000 ML IV SCH ×2 (12:52→22:29)
[2018-09-21] MEDS: oxyCODONE/Acetamin 5/325 MG* TAB PO PRN ×3 (13:44→22:36)
[2018-09-21] MEDS: Cyclobenzaprine TAB* 10 MG PO PRN ×2 (14:30→21:13)
[2018-09-21] MEDS: Carbidopa/Levodop 25/100 MG TAB(*) PO SCH ×2 (14:33→19:58)
[2018-09-21] MEDS: ceFAZolin 1 GM ADVAN(*) 1 GM in NS 0.9% 50 ML* 50 ML IVPB SCH ×2 (16:14→23:56)
[2018-09-21] MEDS: Ondansetron INJ* 2 MG/ML VIAL IV PRN (16:14)
[2018-09-21] MEDS: Ezetimibe TAB* 10 MG PO SCH (17:48)
[2018-09-21] MEDS ORDERED: diPHENhydraMINE PO* 25 MG PO PRN (19:43)
[2018-09-21] MEDS: Docusate CAP* 100 MG PO SCH (19:58)
[2018-09-21] MEDS: Magnesium Hydroxide LIQ* 30 ML UDC PO SCH (19:59)
[2018-09-21] MEDS: oxyCODONE TAB* 5 MG TAB PO PRN ×2 (20:01→23:57)
[2018-09-21] MEDS: Morphine VIAL* 4 MG/ML VIAL (1 ml vial) IV PRN (22:37)
[2018-09-22] MEDS: Ondansetron INJ* 2 MG/ML VIAL IV PRN ×3 (00:04→14:22)
[2018-09-22] MEDS: Morphine VIAL* 4 MG/ML VIAL (1 ml vial) IV PRN ×4 (02:12→12:19)
[2018-09-22 05:55] LABS: Hematocrit 32 % (35-47); Hemoglobin 11.1 g/dl (12.0-16.0); Mean Platelet Volume 9.2 fL (7.4-10.4); Platelet Count 248 10^3/ul (150-450)
[2018-09-22 06:12] LABS: BUN/Creatinine Ratio 28.8 (8-20); Calcium 9.5 mg/dL (8.6-10.3); EGFR African American 110.2 (>60); Potassium 3.8 mmol/L (3.5-5.0)
[2018-09-22] MEDS: Levothyroxine TAB* 75 MCG TAB PO SCH (06:47)
[2018-09-22] MEDS: Lactated Ringers 1000 ML Bag* 1,000 ML IV SCH (08:09)
[2018-09-22] MEDS: ceFAZolin 1 GM ADVAN(*) 1 GM in NS 0.9% 50 ML* 50 ML IVPB SCH ×3 (08:10→23:34)
[2018-09-22] MEDS: Magnesium Hydroxide LIQ* 30 ML UDC PO SCH ×2 (08:43→20:31)
[2018-09-22] MEDS: Enalapril TAB* 20 MG PO SCH (08:43)
[2018-09-22] MEDS: Docusate CAP* 100 MG PO SCH ×2 (08:43→20:31)
[2018-09-22] MEDS: Apixaban* 2.5 MG TAB PO SCH ×2 (08:43→20:31)
[2018-09-22] MEDS: oxyCODONE/Acetamin 5/325 MG* TAB PO PRN ×2 (08:43→15:58)
[2018-09-22] MEDS: Carbidopa/Levodop 25/100 MG TAB(*) PO SCH ×3 (08:44→20:31)
[2018-09-22] MEDS ORDERED: NS 0.9% 500 ML* 500 ML IV ONE (09:06)
[2018-09-22] MEDS ORDERED: Scopolamine 1.5 mg* PATCH ONE (12:12)
[2018-09-22] MEDS ORDERED: Scopolamine 1.5 mg* PATCH TRANSDERM SCH (12:30)
--- NOTE | 2018-09-22 12:48 | PN ---
Progress Note - Progress Note Date of Service: 09/22/18 SOAP: Subjective: Patient is doing well. nausea and emesis overnight d/t anesthesia. Pain controlled. Denies CP/SOB, F/C, or calf pain Objective: PE- 63 y/o WDWN F NAD RLE- dressing c/d/i, calf soft NT, +DF/PF ankle, NVI Vital Signs Temp Pulse Resp BP Pulse Ox 97.8 F 84 20 159/87 96 09/22/18 04:37 09/22/18 04:37 09/22/18 08:43 09/22/18 04:37 09/22/18 04:37 Laboratory Results - last 24 hr 09/22/18 09/22/18 05:14 05:14 Hgb 11.1 L Hct 32 L Plt Count 248 MPV 9.2 Sodium 137 Potassium 3.8 Chloride 102 Carbon Dioxide 28 Anion Gap 7 BUN 19 Creatinine 0.66 Est GFR ( Amer) 110.2 Est GFR (Non-Af Amer) 91.0 BUN/Creatinine Ratio 28.8 H Glucose 134 H Calcium 9.5 Assessment: POD left TKA with Dr. Hillman Plan: WBAT LLE- PT/OT low fluid output this am, cont IV fluids, given 500 ml bolus labs stable cont pain control Cont post op IV abx Possible DC to home tomorrow if pt is stable and does well with PT
[2018-09-22] MEDS: oxyCODONE TAB* 5 MG TAB PO PRN (14:24)
[2018-09-22] MEDS: Ezetimibe TAB* 10 MG PO SCH (18:05)
--- NOTE | 2018-09-23 03:48 | OP ---
OPERATIVE NOTE: DATE OF OPERATION: 09/21/18 DATE OF : 59 SURGEON: Dr. Sloan Hillman. CERTIFIED PROSTHETIST: NATANAEL Mcgrath A physician assignment desk assistant was required for the length of the procedure for assistance with positioning, r etraction, instrumentation, and closure. ANESTHESIOLOGIST: Dr. Michael Hamilton. ANESTHESIA: Spinal anesthesia, regional anesthesia. PRE-OP DIAGNOSES: 1. Right knee osteoarthritis. 2. Right knee posterior root medial meniscus tear. POST-OP DIAGNOSES: 1. Right knee osteoarthritis. 2. Right knee posterior root medial meniscus tear. OPERATIVE PROCEDURE: Right total knee arthroplasty. IV FLUIDS: 1200 cc crystalloid. ANTIBIOTIC: Ancef 2 g IV. TOURNIQUET TIME: 115 minutes at 300 mmHg. SKIN TO SKIN TIME: 112 minutes. SPECIMEN: Bone physis sent to Pathology. IMPLANTS: DePuy Horacio and Horacio Attune knee arthroplasty, cemented, right. Femur was size 3 narr ow. Tibia was size 2. Patellar button was size 35 mm. Polyethylene implant was size 7 mm. I used Z immer Palacos cement. ESTIMATED BLOOD LOSS: Minimal. COMPLICATIONS: None. INDICATIONS: The patient is a 63-year-old woman, who injured herself in February 2018. The patient was f ound by x-ray and MRI imaging to have a posterior root tear of the medial meniscus as well as osteoar thritis. The patient responded insufficiently with non-operative management and opted for the arthro plasty surgery. DESCRIPTION OF PROCEDURE: The patient signed a written consent in preoperative holding. Operative e xtremity was marked in preoperative holding. The patient was taken to the operating room and underwe nt a regional and spinal nerve block by anesthesiologist, Dr. Hamilton. The patient was then laid supi ne. Tourniquet placed about the right proximal thigh. A post placed laterally about the table. Right lower extremity was prepped with chlorhexidine and ChloraPrep. Draping performed. De Araujo kne e positioner put into place. Surgical time-out performed. Antibiotics had been infused. Applied Esmarch and elevated tourniquet to 300 mmHg. We made standard approach. The anterior longitudinal skin incision from three fingerbreadths proxima l to the proximal pole of the patella to the distal end of the tibial tubercle. Changed knives and d issected down to the extensor layer, mechanism. Marked and then made a medial parapatellar arthrotom y. Continued that arthrotomy through the anterior horn of the medial meniscus distally. Fully exten ded knee. Peeled anterior capsule off the medial tibial plateau and lateral tibial plateau with Bovie electroca utery. Partially everted the patella and removed much of the fat from deep to the patellar tendon. Debrided some osteophyte about the patella with rongeur and released a bit of soft tissue around the patella. This allowed for easy tension free eversion of the patella with flexion of the knee. Incised the ACL and removed stumps with Rongeur. Marked the mid point of the femur distally and then used a drill to ream the femoral canal. Irrigated and aspirated contents. Placed distal femoral cu tting guide. Removed 9 mm with 5 degrees of valgus at the distal end of the femur. I then sized the femur to a size 3 with my sizing guide, which I pinned into place. Applied 4-in-1 cu tting guide and made the appropriate bone cuts. Placed external alignment cutting guide on the tibia. Set it to 7 degrees of posterior slope. Remov ed 3 mm from the low side medially. Confirmed in several ways the appropriateness of my cut. Remove d bone block. Bone block seemed a little thin. Measured 3 mm on one side and 8 mm on the other. Placed lamina spreaders. Removed menisci, lateral and medial. Placed bone blocks, dog bone spacers. Bone cuts were excellent, flexion versus extension. The colla teral ligaments were still under much tension with a 5 mm bone block in place and so I decided to rem ove two extra millimeters from the tibia. I replaced the tibial cutting guide and removed an additio nal 2 mm. This provided an excellent tension with the dog bone spacers. I next drilled holes through a femoral trial. I next sized the tibia to a size 2. I pinned sizer in place and reamed and then punched the proximal tibia. I measured the patella to be 22 mm in depth. I then using free hand technique and an oscill ating saw cut the patella so that it was approximately 12.5 mm in depth. I sized it to a 35 mm butto n and placed the appropriate drill holes in the patella. Irrigation of the knee. Placement of some anterior chamfer bone into the femoral canal to plug it up . Mixed cement. Changed gloves. Irrigated knee well. Dried knee. I cemented components in place, tibia, then femur, then patella, and let the cement harden with a tri al [address] I trailed 6 and 7 mm liners and decided on 7 mm liner. Excellent range of motion 0 to 130 degrees of flexion. Excellent soft tissue tension throughout. Placed final liner. I irrigated knee well. Closed parapatellar arthrotomy with [id number] stitches using Ethibond 0 and Vicryl 0 suture. C losed subcutaneous tissue with buried simple stitches using Vicryl 2-0 suture. Staple closure of the skin. Xeroform, 4x4s, ABDs, sterile Webril, Rakesh bandage from foot to proximal thigh. I then dropped the to urniquet. Cooling unit applied. The patient lightened up sedation and transferred to the PACU. DISPOSITION: The patient was admitted postoperatively to my service for pain control, physical thera py, advance of diet as tolerated, appropriate medial management. The patient will receive Eliquis 2. 5 mg p.o. b.i.d. x4 weeks postoperative. She will do physical therapy, weightbearing as tolerated, r ight lower extremity. She was to receive Ancef 1 g IV q.8 hours x48 hours postoperatively. The loida ent will follow up in approximately 2 weeks postoperatively in clinic for wound check and removal of renate. [id number]/[facility] #: [id number]
[2018-09-23] MEDS: oxyCODONE/Acetamin 5/325 MG* TAB PO PRN ×3 (04:16→13:35)
[2018-09-23 05:28] LABS: Hematocrit 30 % (35-47); Platelet Count 221 10^3/ul (150-450)
[2018-09-23] MEDS: Levothyroxine TAB* 75 MCG TAB PO SCH (05:48)
[2018-09-23] MEDS: ceFAZolin 1 GM ADVAN(*) 1 GM in NS 0.9% 50 ML* 50 ML IVPB SCH ×2 (07:56→08:09)
[2018-09-23] MEDS: Magnesium Hydroxide LIQ* 30 ML UDC PO SCH (07:58)
[2018-09-23] MEDS: Carbidopa/Levodop 25/100 MG TAB(*) PO SCH ×2 (07:59→13:35)
[2018-09-23] MEDS: Docusate CAP* 100 MG PO SCH (07:59)
[2018-09-23] MEDS: Enalapril TAB* 20 MG PO SCH (07:59)
[2018-09-23] MEDS: Apixaban* 2.5 MG TAB PO SCH (07:59)
[2018-09-23 11:32] VITALS: BP 127/67
--- NOTE | 2018-09-23 12:18 | PN ---
Progress Note - Progress Note Date of Service: 09/23/18 SOAP: Subjective: pt is doing well pain is controlled. Doing well with PT. Denies F/C,CP/SOB or calf pain Objective: PE- 63 y/o WDWN F NAD RLE- dressing changed,inc c/d/i, calf soft NT, +DF/PF ankle, NVI Vital Signs Temp Pulse Resp BP Pulse Ox 99.1 F 72 17 127/67 98 09/23/18 11:16 09/23/18 11:16 09/23/18 11:16 09/23/18 11:16 09/23/18 11:16 Laboratory Results - last 24 hr 09/23/18 05:05 Hgb 10.0 L Hct 30 L Plt Count 221 MPV 9.0 Assessment: POD [address] Hillman Plan: WBAT LLE- PT/OT Eliquis for DVT prophylaxis Percocet and cyclobenzaprine for pain DC to home today F/U Dr. Hillman 10-14 days post op
--- NOTE | 2018-09-28 02:33 | DS ---
DISCHARGE SUMMARY: DATE OF ADMISSION: 09/21/18 DATE OF DISCHARGE: 09/23/18 PROVIDER: Dr. Sloan Hillman.* (DICTATED BY NATANAEL GARNETT) ADMITTING DIAGNOSIS: Status post right total knee arthroplasty. SECONDARY DIAGNOSES: Degenerative disk disease of the lumbar spine, early Parkinson disease, hypertension, hypothyroidism, high cholesterol. CONSULTATIONS: PT/OT. HISTORY OF PRESENT ILLNESS: Ms. Hall is a 63-year-old female who presented to the clinic with right knee pain due to severe end-stage osteoarthritis. She has failed conservative measures and therefore agreed to undergo a right total knee arthroplasty with Dr. Hillman on 09/21/18. HOSPITAL COURSE: The patient was admitted to [facility] on . She underwent a right total knee arthroplasty. Postoperatively, she recovered on the short-stay surgical unit. Postop day 1, the Cuenca was removed and her pain was controlled with oral Percocet and she was restarted on home medications. Labs and vitals remained stable. She was able to weight bear as tolerated on the right lower extremity. She advanced appropriately with PT and OT. DVT prophylaxis was managed with Eliquis. By postop day 2, she was orthopedically and medically stable for discharge to home with outpatient PT. PHYSICAL EXAM: A 63-year-old well-developed, well-nourished female, in no acute distress. Alert and oriented x3. Appropriate mood and affect. Appropriate balance and coordination of the lower extremity. Right lower extremity: Dressing was changed. The incision was clean, dry, and intact with no signs of infection. She is able to dorsiflex and plantarflex her ankle. Calves soft and nontender. +2 DP pulse. Sensation is intact to light touch distally. DISCHARGE CONDITION: Stable. DISCHARGE MEDICATIONS: Home medications continued on discharge to include: 1. Synthroid 50 mcg 1-1/2 tabs by mouth in the morning. 2. Zetia 10 mg 1 by mouth in the evening. 3. Enalapril 20 mg 1 by mouth in the morning. 4. Carbidopa and levodopa 1 by mouth 3 times a day. 5. Gabapentin 300 mg 3 caps twice a day. 6. Ibuprofen 200 mg 5 tabs by mouth once as needed. The patient was instructed not to take this while on Eliquis. 7. Multivitamin 1 tab by mouth daily. 8. Maxzide 37.5 mg/25 mg 1 by mouth in the morning. 9. Calcium carbonate vitamin D 1 chew in the morning. 10. Excedrin Migraine 1 by mouth once as needed. The patient was instructed not to take this while on Eliquis. New medications on discharge to include: 1. Eliquis 2.5 mg 1 by mouth twice a day. 2. Flexeril 5 mg 3 times a day as needed for muscle spasms or pain. 3. Colace 100 mg 1 by mouth 2 to 3 times a day as needed for constipation. 4. Percocet 5/325 one to two every 4 to 6 hours with an MDD of 10 as needed for pain. DISCHARGE INSTRUCTIONS: The patient is weightbearing as tolerated on the right lower extremity. She is okay to shower on postop day 3 with no swimming, bathing or submerging the wound. Use gentle soap, pat dry, cover with gauze, Rakesh, and tape. Change dressing daily. Call the orthopedic office with increased drainage, redness, or increased pain or fever. Go to the ER with chest pain or shortness of breath. Diet: Regular diet. Increase fluids and fiber to prevent constipation. Continue using stool softeners, call if no bowel movement within 48 hours. Continue PT and OT exercises as shown. Eliquis 2.5 mg 1 by mouth every 12 hours for 30 days for DVT prophylaxis. Do not take aspirin, ibuprofen or naproxen while on Eliquis. Pain control with Percocet 5/ 325, one to two every 4 to 6 hours as needed for pain, MDD of 10. She may take supplemental Tylenol, but it should not exceed more than 4000 mg from all sources daily, cyclobenzaprine 5 mg every 8 hours as needed for muscle pain or spasms. Antibiotics will be required prior to any dental work. She will follow up with Dr. Hillman in 10 to 14 days postop. Her renate will be removed at that visit. She should call the office with any questions or concerns. NATANAEL GARNETT [id number]/[facility] #: [id number] [facility]ITALLindsay
== END 2018-09-23 14:35 | disposition home or self-care (01) | DRG 302 ==
LOC: AA 05:29 → SSU 10:27
PROVIDERS: ADMIT Orthopaedic Surgery; ATTEND Orthopaedic Surgery
PROC: 0SRC0J9 Replacement of Right Knee Joint with Synthetic Substitute, Cemented, Open Approach (ICD-10-PCS; principal; 2018-09-21 07:30)
DX: M17.11 Unilateral primary osteoarthritis, right knee (principal); S83.241D Other tear of medial meniscus, current injury, right knee, subsequent encounter; M51.36 Other intervertebral disc degeneration, lumbar region; G20 Parkinson's disease; I10 Essential (primary) hypertension; E03.9 Hypothyroidism, unspecified; E78.00 Pure hypercholesterolemia, unspecified; M54.40 Lumbago with sciatica, unspecified side; M25.761 Osteophyte, right knee; W18.30XD Fall on same level, unspecified, subsequent encounter; Z79.899 Other long term (current) drug therapy
CPT/HCPCS: 36415; 80048; 85014; 85018; 85049; 88305; 88311; A9270-GY; C1776; J0690; J1100; J2250; J2270; J2405; J2704; J2795; J3010

== ENCOUNTER 2021-06-14 06:20 | Inpatient (IN) ==
[~2021-06-14 06:20] MED LIST changes: -Buffered Lidocaine 0.9% SYRIN* 5 ML/SYR SYRINGE INTRADERM ONE; +Buffered Lidocaine 1% SYRIN 1 ml INTRADERM ONE; +Lactated Ringers 1000 ml BAG 1,000 ML IV SCH; -Tranexamic Acid 1,000 MG in NS 0.9% 50 ML* (outpatient use) IV SCH
[2021-06-14] MEDS ORDERED: ceFAZolin 2 GM in NS PREMIX 2 GM/100 ML BAG IVPB ONE (06:35)
[2021-06-14] MEDS ORDERED: Vancomycin 1,000 MG VIAL ONE (07:26)
[2021-06-14] MEDS ORDERED: Bupivacaine 0.5% SDV PF 30ML VIAL ONE (07:27)
[2021-06-14] MEDS ORDERED: Midazolam 5 mg/5 ml VIAL 1 mg/ml 5 ml VIAL (5 mg) ONE (08:04)
[2021-06-14] MEDS ORDERED: fentaNYL 100 mcg/2 ml 50 MCG/ML VIAL ONE (08:04)
[2021-06-14] MEDS ORDERED: Lidocaine 1% MPF 5 ML VIAL ONE (08:19)
[2021-06-14] MEDS ORDERED: ROPIVACAINE 5 MG/ML 30 ML BTL (0.5%) ONE (08:20)
[2021-06-14] MEDS ORDERED: Ketamine HCL 50 mg/ml 10 ml VIAL (500 MG) ONE (09:23)
[2021-06-14] MEDS ORDERED: Ondansetron 4 mg VIAL 2 MG/ML 2 ml VIAL ONE (09:36)
[2021-06-14] MEDS ORDERED: EPHEDrine (Pressors) 50 MG/ML VIAL ONE (09:36)
[2021-06-14] MEDS ORDERED: Propofol 10 MG/ML 20 ML BTL ONE ×2 (09:36→10:46)
[2021-06-14] MEDS ORDERED: Phenylephrine 40 mcg/mL 10mL (400mcg) SYRINGE ONE (09:36)
[2021-06-14] MEDS ORDERED: Lidocaine 2% PF 5 ML VIAL ONE (09:36)
[2021-06-14] MEDS ORDERED: DiMENhydriNATE IV 50 mg/ml 1 ml VIAL IV PUSH PRN (10:17)
[2021-06-14] MEDS ORDERED: HYDROmorphone 1 MG/1 ML SYRINGE IV PRN (10:17)
[2021-06-14] MEDS ORDERED: Naloxone 0.4 mg VIAL 0.4 mg/ml 1 ml VIAL IV PRN (10:17)
[2021-06-14] MEDS ORDERED: HYDROcodone/ACETAMIN 5/325 mg TAB PO PRN (10:17)
[2021-06-14] MEDS ORDERED: HYDROmorphone 1 MG/1 ML SYRINGE ONE (11:13)
[2021-06-14] MEDS ORDERED: diPHENhydraMINE IV 50 MG/ML 1 ml VIAL (BENADRYL) IV PRN (11:55)
[2021-06-14] MEDS ORDERED: Morphine 2 MG/ML SYRINGE IV PRN (11:55)
[2021-06-14] MEDS ORDERED: Magnesium Hydroxide LIQ 30 ML UDC PO PRN (11:55)
[2021-06-14] MEDS ORDERED: Ondansetron ODT 4 mg TAB 4 MG TAB PO PRN (11:55)
[2021-06-14] MEDS ORDERED: Ondansetron 4 mg VIAL 2 MG/ML 2 ml VIAL IV PRN (11:55)
[2021-06-14] MEDS ORDERED: Lactulose 30 ml UDC PO PRN (11:55)
[2021-06-14] MEDS ORDERED: diPHENhydraMINE 25 mg TAB PO PRN (11:55)
[2021-06-14] MEDS: Lactated Ringers 1000 ml BAG 1,000 ML IV SCH (13:00)
[2021-06-14] MEDS: Carbidopa/Levodop 25/100 MG TAB PO SCH ×2 (13:53→19:40)
[2021-06-14] MEDS: ceFAZolin 1 GM ADVAN 1 GM in NS 0.9% 50 ML 50 ML IVPB SCH (17:02)
[2021-06-14] MEDS: Magnesium Hydroxide LIQ 30 ML UDC PO SCH (19:42)
[2021-06-15] MEDS: ceFAZolin 1 GM ADVAN 1 GM in NS 0.9% 50 ML 50 ML IVPB SCH ×2 (00:59→08:13)
[2021-06-15] MEDS: Lactated Ringers 1000 ml BAG 1,000 ML IV SCH ×2 (01:10→08:13)
[2021-06-15 06:05] LABS: Hematocrit 35 % (35-47); Hemoglobin 11.7 g/dL (12.0-16.0); Mean Platelet Volume 8.6 fL (7.4-10.4); Platelet Count 205 10^3/uL (150-450)
[2021-06-15 06:27] LABS: Calcium 9.1 mg/dL (8.6-10.3); Potassium 4.1 mmol/L (3.5-5.0)
[2021-06-15 07:46] VITALS: BP 109/75
[2021-06-15] MEDS: Magnesium Hydroxide LIQ 30 ML UDC PO SCH (08:14)
[2021-06-15] MEDS: Carbidopa/Levodop 25/100 MG TAB PO SCH (08:15)
[2021-06-15] MEDS ORDERED: Flu vaccine *QUAD* 2021-22* 0.5 ML SYRINGE IM ONE (09:00)
[2021-06-15] MEDS ORDERED: Calcium/Vitamin D TAB 250/125 TAB PO SCH (09:00)
[2021-06-15] MEDS ORDERED: Vitamin THERAPEUTIC TAB PO SCH (09:00)
== END 2021-06-15 11:35 | disposition home or self-care (01) | DRG 302 ==
LOC: AA 06:20 → SSU 12:44
PROVIDERS: ADMIT Orthopaedic Surgery; ATTEND Orthopaedic Surgery